=== PATIENT | female | born 1990 | race Hispanic/Latino ===

== ENCOUNTER 2017-02-06 22:37 | Emergency (ER) | payer MEDICAID ==
[2017-02-06 22:38] VITALS: BMI 19.8
--- NOTE | 2017-02-06 23:34 | C.PDOC ---
History Of Present Illness 26 year old female presents to the ER with a complaint of right upper quadrant pain for the past 3 days, associated with multiple episodes of nausea and vomiting. Patient states the pain is similar to prior episodes of "gallbladder problems". Patient was diagnosed with a dysfunctional gall bladder via HIDA scan on 01/23/17. Patient's GI doctor is Dr. Galarza. Patient is also scheduled for surgery on February 15. She denies fever, dysuria/hematuria, diarrhea, vaginal bleeding/discharge. Time Seen by Provider: 02/06/17 23:11 Chief Complaint (Nursing): Abdominal Pain History Per: Patient History/Exam Limitations: no limitations Onset/Duration Of Symptoms: Days (3) Current Symptoms Are (Timing): Still Present Severity: Moderate Location Of Pain/Discomfort: RUQ Associated Symptoms: Nausea (Multiple episodes), Vomiting (Multiple episodes). denies: Fever, Chills Abnormal Vaginal Bleeding: No Past Medical History Reviewed: Historical Data, Nursing Documentation, Vital Signs Vital Signs: Last Vital Signs Temp 98.4 F 02/07/17 02:29 Pulse 74 02/07/17 02:29 Resp 18 02/07/17 02:29 BP 99/60 L 02/07/17 02:29 Pulse Ox 100 02/07/17 02:29 - Medical History PMH: Anxiety, Arthritis ("SPINAL"), Asthma, Gastritis, Seizures - [facility] Procedures INJECT/INFUSE ELECTROLYT (02/24/12) INJECT/INFUSE NEC (04/07/12) NEBULIZER THERAPY (02/20/13) Family History: States: No Known Family Hx - Social History Hx Tobacco Use: No Hx Alcohol Use: No Hx Substance Use: No - Immunization History Hx Tetanus Toxoid Vaccination: Yes Hx Influenza Vaccination: Yes Hx Pneumococcal Vaccination: No Review Of Systems Except As Marked, All Systems Reviewed And Found Negative. Constitutional: Negative for: Fever, Chills Cardiovascular: Negative for: Chest Pain, Palpitations Respiratory: Negative for: Shortness of Breath Gastrointestinal: Positive for: Nausea, Vomiting, Abdominal Pain (RUQ). Negative for: Diarrhea Genitourinary: Negative for: Dysuria, Hematuria, Vaginal Discharge, Vaginal Bleeding Physical Exam - Physical Exam Appears: Well, Non-toxic, Other (Uncomfortable, awake alert, actively vomiting) Skin: Normal Color, Warm, Dry Head: Normacephalic Oral Mucosa: Moist Cardiovascular: Rhythm Regular Respiratory: Normal Breath Sounds, No Rales, No Rhonchi, No Wheezing Gastrointestinal/Abdominal: Bowel Sounds, Soft, Tenderness (RUQ), No Distention , No Guarding, No Rebound Back: Normal Inspection, No CVA Tenderness Neurological/Psych: Oriented x3 ED Course And Treatment - Laboratory Results Result Diagrams: 02/06/17 23:55 02/06/17 23:55 O2 Sat by Pulse Oximetry: 99 (Room air) Pulse Ox Interpretation: Normal Progress Note: Blood work, UA, Upreg ordered and reviewed. Patient given IV NS bolus, IV Zofran, IV pepcid, IV morphine. Reevaluation Time: 02:15 Reassessment Condition: Improved (Patient reassessed, is currently resting comfortably, in no acute distress/pain. She states she is feeling better after medications. Patient given Rxs for zofran, Ciprofloxacin and zofran ODT. Patient instructed to follow up surgeon Dr. Heaton as scheduled. She understands she should return to ED if symptoms worsen.) Disposition Counseled Patient/Family Regarding: Studies Performed, Diagnosis, Need For Followup, Rx Given - Disposition Referrals: Yunior Galarza MD [Staff Provider] - Marito Heaton MD [Staff Provider] - Disposition: HOME/ ROUTINE Disposition Time: 02:15 Condition: STABLE Additional Instructions: FOLLOW UP WITH SURGEON DR MEZA SCHEDULED USE MEDICATIONS NEEDED/DIRECTED RETURN TO ER IF SYMPTOMS WORSEN Prescriptions: Ciprofloxacin [Cipro] 1 tab PO BID #14 tab Hydrocodone/Acetaminophen [Hydrocodon-Acetaminophen 5-325] 1 each PO Q6 PRN #12 tablet PRN Reason: Pain, Moderate (4-7) Ondansetron [Zofran Odt] 4 mg PO Q8 PRN #12 odt PRN Reason: Nausea/Vomiting Instructions: Acute Nausea and Vomiting (ED), Urinary Tract Infection in Women (ED) Print Language: BRUNEIAN - POA Present On Arrival: None - Clinical Impression Clinical Impression: Abdominal pain, Vomiting, Nausea, Dysfunctional gallbladder - Scribe Statement The provider has reviewed the documentation as recorded by the Joseibyessi Gomez All medical record entries made by the Joseibyessi were at my direction and personally dictated by me. I have reviewed the chart and agree that the record accurately reflects my personal performance of the history, physical exam, medical decision making, and the department course for this patient. I have also personally directed, reviewed, and agree with the discharge instructions and disposition.
[2017-02-06] MEDS ORDERED: Sodium Chloride 0.9% 1,000 ML IV ONE (23:42)
[2017-02-06] MEDS ORDERED: Morphine 4 MG/ML VIAL ONE (23:57)
[2017-02-06] MEDS ORDERED: Sodium Chloride 0.9% 1,000 ML ONE (23:58)
[2017-02-07] LABS: BASO # 0.1 K/uL (0.0-0.2); BASO % 0.7 % (0.0-2.0); EOS # 0.1 K/uL (0.0-0.7); EOS % 1.5 % (0.0-4.0); LYMPH # 1.7 K/uL (1.0-4.3); LYMPH % 17.5 % (20.0-40.0); MEAN CORPUSCULAR HEMOGLOBIN 29.7 pg (27.0-31.0); MEAN CORPUSCULAR HGB CONC 33.4 g/dL (33.0-37.0); MEAN PLATELET VOLUME 7.5 fL (7.2-11.7); MONO # 0.7 K/uL (0.0-0.8); NRBC % 0.1 % (0.0-2.0); RED CELL DISTRIBUTION WIDTH 12.8 % (11.5-14.5); WHITE BLOOD COUNT 9.7 K/uL (4.8-10.8)
[2017-02-07 00:04] LABS: RBC URINE 2 /hpf (0-3); URINE BACTERIA MANY (<OCC); URINE BILIRUBIN NEGATIVE (NEGATIVE); URINE BLOOD 2+ (NEGATIVE); URINE COLOR Yellow (YELLOW); URINE GLUCOSE (UA) NORMAL (Normal); URINE KETONE NEGATIVE (NEGATIVE); URINE LEUKOCYTE ESTERASE 1+ Leu/uL (Negative); URINE PROTEIN NEGATIVE (NEGATIVE); URINE UROBILINOGEN NORMAL mg/dL (0.2-1.0); WBC URINE 24 /hpf (0-5)
[2017-02-07 00:08] LABS: CHLORIDE 101 mmol/L (98-107); SODIUM 137 mmol/L (132-148)
[2017-02-07 00:09] LABS: POTASSIUM 3.5 mmol/L (3.6-5.2)
[2017-02-07 00:11] LABS: ALB/GLOB RATIO 1.5 (1.0-2.1); ALKALINE PHOSPHATASE 40 U/L (38-126); ALT/SGPT 14 U/L (9-52); AST/SGOT 20 U/L (14-36); BILIRUBIN,TOTAL 0.5 mg/dL (0.2-1.3); BLOOD UREA NITROGEN 14 mg/dL (7-17); CARBON DIOXIDE 23 mmol/L (22-30); GFR AFRICAN-AMERICAN > 60; GLUCOSE,RANDOM 121 mg/dL (65-105)
[2017-02-07 00:12] LABS: CALCIUM 8.7 mg/dl (8.6-10.4)
[2017-02-07] MEDS ORDERED: Sodium Chloride 0.9% 1,000 ML IV ONE (00:59)
[2017-02-07] MEDS ORDERED: Morphine 4 MG/ML VIAL ONE (01:13)
[2017-02-07] MEDS ORDERED: Sodium Chloride 0.9% 1,000 ML ONE (01:13)
[2017-02-07 02:31] VITALS: BP 99/60; PULSE 74; RESP 18; TEMP 98.4
[2017-02-15 15:54] VITALS: O2SAT 99
== END 2017-02-07 02:30 | disposition home or self-care (01) ==
LOC: C.ER 22:37
DX: K82.8 Other specified diseases of gallbladder (principal); N39.0 Urinary tract infection, site not specified; B96.89 Other specified bacterial agents as the cause of diseases classified elsewhere
CPT/HCPCS: 80053; 81001; 83690; 84703; 85025; 87086; 96361; 96374; 96375; 96376; 99284; J2270; J2405; J7040

== ENCOUNTER 2017-02-19 07:42 | Day surgery (SDC) | payer MEDICAID ==
[2017-02-16 09:48] VITALS: BMI 19.3
[2017-02-19] MEDS ORDERED: Midazolam 2 MG/2 ML VIAL ONE (10:19)
[2017-02-19] MEDS ORDERED: Propofol 10 mg/ml Inj (20 ML) ONE (10:19)
[2017-02-19] MEDS ORDERED: Lidocaine 1% Inj (20ml) ONE (10:20)
[2017-02-19] MEDS ORDERED: Bupivacaine/Epi 0.25%-1:200,000 10 ml PF inj IJ ONE (10:20)
[2017-02-19] MEDS ORDERED: Lactated Ringer's 1,000 ML IV ONE ×2 (10:35→13:00)
[2017-02-19] MEDS: Ciprofloxacin 400mg/200ml D5W 200 ML IVPB ONE ×2 (10:45→10:50)
[2017-02-19] MEDS ORDERED: Rocuronium 10 mg/ml (5 ml) ONE (11:49)
--- NOTE | 2017-02-19 12:02 | PCM.SURG1 ---
Surgeon's Initial Post Op Note - Surgeon's Notes Surgeon: Mimi Heaton MD Intelligence Chief: MADHU Pepper Type of Anesthesia: General Endo Pre-Operative Diagnosis: Chronic Cholecystitis and Cholelithiasis Operative Findings: Chronic Cholecystitis and Cholelithiasis Post-Operative Diagnosis: Chronic Cholecystitis and Cholelithiasis Operation Performed: Robotic Cholecystectomy Specimen/Specimens Removed: Gall Bladder Estimated Blood Loss: EBL {In ML}: 10 Blood Products Given: N/A Drains Used: No Drains Post-Op Condition: Good Date of Surgery/Procedure: 02/19/17 Time of Surgery/Procedure: 12:02
[2017-02-19] MEDS ORDERED: HYDROmorphone 0.5 mg/0.5 ml ISec ONE (12:08)
[2017-02-19] MEDS: HYDROmorphone 0.5 mg/0.5 ml ISec IVP PRN ×3 (12:08→13:06)
[2017-02-19] MEDS ORDERED: Lactated Ringer's 1,000 ML IV SCH (12:15)
--- NOTE | 2017-02-19 13:25 | OP ---
PROCEDURE DATE: 02/19/2017 PREOPERATIVE DIAGNOSES: Chronic cholecystitis and cholelithiasis. POSTOPERATIVE DIAGNOSES: Chronic cholecystitis and cholelithiasis. PROCEDURE DONE: Robotic cholecystectomy. SURGEON: Marito Heaton MD SERVICES TECH: Ealine Fernandez. Elaine was present from the beginning to the end of the procedure, helped i n the prepping and draping, placement of the port, docking/undocking of the robot and closure of the wounds. ANESTHESIA: General endotracheal tube. ESTIMATED BLOOD LOSS: Around 10 mL. PATHOLOGY: The gallbladder was sent. COMPLICATIONS: None. DRAINS: None. INTRAOPERATIVE FINDINGS: The patient had changes of chronic cholecystitis and cholelithiasis. INTRAOPERATIVE STEPS: This 26-year-old female who was diagnosed with chronic cholecystitis and isac lithiasis and the patient was consented for robotic cholecystectomy, possible open, brought to the OR , placed supine on the operating table. After induction of the anesthesia, abdomen was prepped and d raped in the usual sterile fashion. Infraumbilical transverse incision was made. After incising ski n and subcutaneous tissue and fascia, the robotic camera port was placed. Another two 8 mm ports wer e placed in right flank and left flank and the 5 mm port was placed in the midclavicular line on the right side and the robot was brought in and arm 1 and arm 2 were docked and the gallbladder was retra cted cranially. Calot's triangle dissection was done. Cystic duct and cystic artery was identified. The critical view of safety was identified. Intraoperative Firefly was used to identify the anatom y and after proper identification of the structures, the cystic duct and cystic artery were clipped a t 3 places and cut in between 2 clips nearby gallbladder. The gallbladder was dissected free from e gallbladder fossa, taken in EndoCatch bag, taken out through the umbilical port site and sent to e table for the pathology. The umbilical port site was closed in 2 layers, the fascia with 0 Vicryl interrupted suture, skin with 4-0 Monocryl. Dry sterile dressing was applied. The patient tolerated the procedure well. Count of instruments and gauze was correct. There was no apparent complication . The patient was extubated in the OR, sent to the postanesthesia care unit in stable condition. Marito Heaton MD cc: [id number] TT: 02/19/2017 13:24:24 en
[2017-02-19 14:00] VITALS: RESP 18
[2017-02-19 14:51] VITALS: BP 120/77; PULSE 95; TEMP 97.5; O2SAT 99
== END 2017-02-19 14:38 | disposition home or self-care (01) ==
LOC: C.SDS 07:42
PROVIDERS: ATTEND Surgery Surgical Critical Care
DX: K80.10 Calculus of gallbladder with chronic cholecystitis without obstruction (principal)
CPT/HCPCS: 47562; 88304; J0744; J1170; J1885; J2250; J2405; J2704; J3010; J7030; J7120

== ENCOUNTER 2017-03-01 09:12 | Emergency (ER) | payer MEDICAID ==
[2017-03-01 09:23] VITALS: BMI 20.2
--- NOTE | 2017-03-01 09:40 | C.PDOC ---
History Of Present Illness 26 y/o female, LMP on 02/15/17, presents to ED with complaint of vaginal bleeding onset today. Patient reports today she started having vaginal bleeding , causing concern, and came to ER. She reports she has not been sexually active since before last menstrual period. History significant for cholecystectomy on , also with normal pap smear at binding cementer french cord visit in December,. She reports period on 02/15 was for only 2 days and was light, noting she only has menses for 5 days typically and every 28 days. Otherwise, denies abdominal pain other than mild incisional pain she reports that she has had since surgery. Denies dysuria or other vaginal discharge. Patient reports she is not . Time Seen by Provider: 03/01/17 09:15 Chief Complaint (Nursing): Abdominal Pain History Per: Patient History/Exam Limitations: no limitations Onset/Duration Of Symptoms: Hrs Current Symptoms Are (Timing): Still Present Associated Symptoms: denies: Fever, Nausea, Vomiting, Diarrhea, Urinary Symptoms Recent travel outside of the [place]: No Abnormal Vaginal Bleeding: Yes Last Menstral Period: 02/15/17 Past Medical History Reviewed: Historical Data, Nursing Documentation, Vital Signs Vital Signs: Last Vital Signs Temp 98.5 F 03/01/17 11:21 Pulse 93 H 03/01/17 11:21 Resp 16 03/01/17 11:21 BP 97/62 L 03/01/17 11:21 Pulse Ox 98 03/01/17 11:21 - Medical History PMH: Anxiety, Arthritis (coccyx), Asthma, Cardia Arrhythmia (5 years ago due to infection per pt asymptomatic at present), Fractures (coccyx), Gastritis, Gall Bladder Disease, Seizures (grand mal last seizure 6 months ago) Surgical History: Endoscopy - [facility] Procedures INJECT/INFUSE ELECTROLYT (02/24/12) INJECT/INFUSE NEC (04/07/12) NEBULIZER THERAPY (02/20/13) Family History: States: Unknown Family Hx - Social History Hx Tobacco Use: No Hx Alcohol Use: No Hx Substance Use: No - Immunization History Hx Tetanus Toxoid Vaccination: Yes Hx Influenza Vaccination: Yes Hx Pneumococcal Vaccination: Yes Review Of Systems Constitutional: Negative for: Fever, Chills ENT: Negative for: Ear Pain Cardiovascular: Negative for: Chest Pain, Palpitations, Orthopnea, Edema, Light Headedness Respiratory: Negative for: Cough, Shortness of Breath, SOB with Excertion, Wheezing Gastrointestinal: Negative for: Nausea, Vomiting, Abdominal Pain, Diarrhea, Constipation Genitourinary: Positive for: Vaginal Bleeding. Negative for: Dysuria, Vaginal Discharge, Pelvic Pain, Rash Skin: Negative for: Rash Neurological: Negative for: Weakness, Numbness, Altered Mental Status, Headache , Dizziness Psych: Negative for: Anxiety Physical Exam - Physical Exam Appears: Well, Non-toxic, No Acute Distress Skin: Warm, Dry Head: Atraumatic, Normacephalic Eye(s): bilateral: Normal Inspection Oral Mucosa: Moist Neck: Supple Chest: Symmetrical Cardiovascular: Rhythm Regular Respiratory: Normal Breath Sounds, No Rales, No Rhonchi, No Wheezing Gastrointestinal/Abdominal: Soft, No Tenderness, No Organomegaly, No Mass, No Distention, No Guarding, No Rebound, Other (laproscopic incision x 3, clean, dry , and intact with steri strips in place) Back: Normal Inspection, No CVA Tenderness Extremity: Normal ROM, Capillary Refill (< 2 sec. ) Neurological/Psych: Oriented x3, Normal Speech, Normal Cognition ED Course And Treatment - Laboratory Results Result Diagrams: 03/01/17 09:42 03/01/17 09:42 O2 Sat by Pulse Oximetry: 100 (RA) Pulse Ox Interpretation: Normal Medical Decision Making Medical Decision Making: Patient is hemodynamically stable and well appearing. Mild incisional tenderness on exam which appears normal post-op. Recent normal pap smear. She has no hx of fibroids and no hx of bleeding disorders. Impression: vs. irregular menses Plan: * bloodwork, UA, POC upreg * reassess Progress: Patient is not . She has normal vitals. Her labs show hgb:13 and normal platelets and coagulation studies. Her ua shows blood and trace leukocytes but no nitrates and she has no dysuria. As she is asymptomatic and not , will not treat based on current guidelines. Patient instructed on the importance of following up with hide paster for irregular menses for further evaluation. Disposition - Disposition Disposition: HOME/ ROUTINE Disposition Time: 11:04 Condition: GOOD Additional Instructions: Follow up with PMD within 2 days. Follow-up with your surgeon as regularly scheduled. You need to follow-up with your hide paster for irregular menses within 1 week. Return to ED if condition worsens. Instructions: Menstruation (ED), Dysfunctional Uterine Bleeding (ED) - Clinical Impression Clinical Impression: Metrorrhagia - Scribe Statement The provider has reviewed the documentation as recorded by the Bruce Guthrie Provider Bruce Attestation: All medical record entries made by the Joseibe were at my direction and personally dictated by me. I have reviewed the chart and agree that the record accurately reflects my personal performance of the history, physical exam, medical decision making, and the department course for this patient. I have also personally directed, reviewed, and agree with the discharge instructions and disposition.
[2017-03-01 09:45] LABS: BASO # 0.1 K/uL (0.0-0.2); BASO % 0.5 % (0.0-2.0); EOS # 0.3 K/uL (0.0-0.7); EOS % 2.3 % (0.0-4.0); HEMATOCRIT 40.2 % (34.0-47.0); LYMPH # 0.9 K/uL (1.0-4.3); LYMPH % 7.7 % (20.0-40.0); MEAN CELL VOLUME 89.2 fL (81.0-99.0); MEAN CORPUSCULAR HEMOGLOBIN 29.4 pg (27.0-31.0); MONO # 0.6 K/uL (0.0-0.8); MONO % 5.2 % (0.0-10.0); PLATELET COUNT 295 K/uL (130-400); RED CELL DISTRIBUTION WIDTH 12.5 % (11.5-14.5); WHITE BLOOD COUNT 11.9 K/uL (4.8-10.8)
[2017-03-01 09:53] LABS: CHLORIDE 104 mmol/L (98-107); INR 1.1; SODIUM 141 mmol/L (132-148)
[2017-03-01 09:56] LABS: BLOOD UREA NITROGEN 14 mg/dL (7-17); CALCIUM 8.6 mg/dl (8.6-10.4); CARBON DIOXIDE 25 mmol/L (22-30); GFR AFRICAN-AMERICAN > 60; GLUCOSE,RANDOM 100 mg/dL (65-105)
[2017-03-01 10:20] LABS: EOSINOPHIL 2 % (0-4); NEUTROPHIL 87 % (50-75); TOTAL CELLS COUNTED 100
[2017-03-01 10:59] LABS: RBC URINE 29 /hpf (0-3); URINE BILIRUBIN NEGATIVE (NEGATIVE); URINE BLOOD 3+ (NEGATIVE); URINE COLOR Yellow (YELLOW); URINE GLUCOSE (UA) NORMAL (Normal); URINE KETONE NEGATIVE (NEGATIVE); URINE LEUKOCYTE ESTERASE TRACE Leu/uL (Negative); URINE PROTEIN 1+ mg/dL (NEGATIVE); URINE UROBILINOGEN NORMAL mg/dL (0.2-1.0); WBC URINE 5 /hpf (0-5)
[2017-03-01 11:21] VITALS: BP 97/62; PULSE 93; RESP 16; TEMP 98.5
[2017-03-01 12:58] VITALS: O2SAT 100
== END 2017-03-01 11:27 | disposition home or self-care (01) ==
LOC: C.ER 09:12
DX: N92.1 Excessive and frequent menstruation with irregular cycle (principal)
CPT/HCPCS: 80048; 81001; 85025; 85610; 85730; 96374; 99285; J1885

== ENCOUNTER 2017-04-11 09:28 | Emergency (ER) | payer MEDICAID ==
[2017-04-11 09:29] VITALS: BMI 20.2
[2017-04-11] MEDS ORDERED: Sodium Chloride 0.9% 1,000 ML IV ONE (10:03)
--- NOTE | 2017-04-11 10:06 | C.PDOC ---
History Of Present Illness 26 y/o female, history of gastritis, IBS, and cholecystectomy presents to ED with c/o abdominal pain associated with persistent vomiting since 10PM last night. Pt also reports mild diarrhea. She notes she has been unable to take her regular medications. Denies fever, chills, chest pain, shortness of breath, urinary symptoms, or other complaints. Time Seen by Provider: 04/11/17 10:02 Chief Complaint (Nursing): GI Problem History Per: Patient History/Exam Limitations: no limitations Onset/Duration Of Symptoms: Hrs, Persistent Current Symptoms Are (Timing): Still Present Location Of Pain/Discomfort: Epigastric Radiation Of Pain To:: None Quality Of Discomfort: "Pain" Associated Symptoms: Nausea, Vomiting, Diarrhea. denies: Urinary Symptoms Recent travel outside of the [place]: No Past Medical History Reviewed: Historical Data, Nursing Documentation, Vital Signs Vital Signs: Last Vital Signs Temp 98.8 F 04/11/17 12:40 Pulse 93 H 04/11/17 12:40 Resp 18 04/11/17 12:40 BP 96/63 L 04/11/17 12:40 Pulse Ox 98 04/11/17 12:40 - Medical History PMH: Anxiety, Arthritis (coccyx), Asthma, Cardia Arrhythmia (5 years ago due to infection per pt asymptomatic at present), Fractures (coccyx), Gastritis, Gall Bladder Disease, Seizures (grand mal last seizure 6 months ago) Surgical History: Cholecystectomy, Endoscopy - [facility] Procedures INJECT/INFUSE ELECTROLYT (02/24/12) INJECT/INFUSE NEC (04/07/12) NEBULIZER THERAPY (02/20/13) Family History: States: Unknown Family Hx - Social History Hx Tobacco Use: No Hx Alcohol Use: No Hx Substance Use: No - Immunization History Hx Tetanus Toxoid Vaccination: No Hx Influenza Vaccination: No Hx Pneumococcal Vaccination: No Review Of Systems Except As Marked, All Systems Reviewed And Found Negative. Constitutional: Negative for: Fever, Chills Cardiovascular: Negative for: Chest Pain Respiratory: Negative for: Cough, Shortness of Breath, Wheezing Gastrointestinal: Positive for: Nausea, Vomiting, Abdominal Pain, Diarrhea Genitourinary: Negative for: Dysuria Skin: Negative for: Rash Physical Exam - Physical Exam Appears: Non-toxic, Other (uncomfortable) Skin: Normal Color, Warm, Dry Head: Atraumatic, Normacephalic Oral Mucosa: Moist Chest: Symmetrical Cardiovascular: Rhythm Regular Respiratory: Normal Breath Sounds, No Rales, No Rhonchi, No Wheezing Gastrointestinal/Abdominal: Soft, Tenderness (epigastric), No Distention, No Guarding, No Rebound Back: Normal Inspection Extremity: Normal ROM, Capillary Refill (< 2 sec. ) Neurological/Psych: Oriented x3, Normal Speech, Normal Cognition ED Course And Treatment - Laboratory Results Result Diagrams: 04/11/17 10:48 04/11/17 10:48 O2 Sat by Pulse Oximetry: 100 (RA) Pulse Ox Interpretation: Normal Medical Decision Making Medical Decision Making: Pepcid, Zofran, IV fluids, labs ordered. Labs reviewed and unremarkable, no leukocytosis or bands On re-eval patient afebrile and reports feeling better. Patient was able to tolerate PO. Patient is stable and comfortable for discharge Disposition Counseled Patient/Family Regarding: Diagnosis, Need For Followup, Rx Given - Disposition Disposition: HOME/ ROUTINE Disposition Time: 11:55 Condition: IMPROVED Additional Instructions: Drink fluids to prevent dehydration. Take Zofran as prescribed. Try low-fat diet with increase in fluids such as sport drink, gelatin. Try soup, rice, bread , crackers, cereal, and bananas to help with diarrhea. Avoid high sugar foods or drinks (soda and juice), fatty foods Prescriptions: Dicyclomine [Bentyl] 20 mg PO QID #20 tab Ondansetron ODT [Zofran ODT] 1 odt PO BID PRN #6 odt PRN Reason: Nausea/Vomiting Instructions: Gastroenteritis (DC) - POA Present On Arrival: None - Clinical Impression Clinical Impression: Gastroenteritis - PA / JEWELRY ENGRAVER / Resident Statement MD/DO has reviewed & agrees with the documentation as recorded. - Scribe Statement The provider has reviewed the documentation as recorded by the Joseibyessi Guthrie All medical record entries made by the Joseibyessi were at my direction and personally dictated by me. I have reviewed the chart and agree that the record accurately reflects my personal performance of the history, physical exam, medical decision making, and the department course for this patient. I have also personally directed, reviewed, and agree with the discharge instructions and disposition.
[2017-04-11] MEDS ORDERED: Sodium Chloride 0.9% 1,000 ML ONE (10:44)
[2017-04-11 11:16] LABS: BASO # 0.1 K/uL (0.0-0.2); BASO % 0.9 % (0.0-2.0); EOS % 0.6 % (0.0-4.0); LYMPH # 1.2 K/uL (1.0-4.3); LYMPH % 14.4 % (20.0-40.0); MEAN CELL VOLUME 89.7 fL (81.0-99.0); MEAN CORPUSCULAR HGB CONC 33.5 g/dL (33.0-37.0); MEAN PLATELET VOLUME 8.4 fL (7.2-11.7); MONO # 0.5 K/uL (0.0-0.8); MONO % 5.4 % (0.0-10.0); NRBC % 0.1 % (0.0-2.0); RED CELL DISTRIBUTION WIDTH 12.8 % (11.5-14.5); WHITE BLOOD COUNT 8.4 K/uL (4.8-10.8)
[2017-04-11 11:26] LABS: CHLORIDE 105 mmol/L (98-107)
[2017-04-11 11:27] LABS: POTASSIUM 4.4 mmol/L (3.6-5.2); SODIUM 140 mmol/L (132-148)
[2017-04-11 11:29] LABS: ALB/GLOB RATIO 1.7 (1.0-2.1); ALKALINE PHOSPHATASE 43 U/L (38-126); ALT/SGPT 21 U/L (9-52); AST/SGOT 20 U/L (14-36); BILIRUBIN,TOTAL 0.4 mg/dL (0.2-1.3); BLOOD UREA NITROGEN 14 mg/dL (7-17); CARBON DIOXIDE 21 mmol/L (22-30); GFR AFRICAN-AMERICAN > 60; GLUCOSE,RANDOM 104 mg/dL (65-105); TOTAL PROTEIN 7.4 g/dL (6.3-8.3)
[2017-04-11 11:30] LABS: CALCIUM 8.6 mg/dl (8.6-10.4)
[2017-04-11 11:39] LABS: RBC URINE 3 /hpf (0-3); URINE BACTERIA FEW (<OCC); URINE BILIRUBIN NEGATIVE (NEGATIVE); URINE BLOOD NEGATIVE (NEGATIVE); URINE COLOR Yellow (YELLOW); URINE GLUCOSE (UA) NORMAL (Normal); URINE KETONE NEGATIVE (NEGATIVE); URINE LEUKOCYTE ESTERASE TRACE Leu/uL (Negative); URINE PROTEIN NEGATIVE (NEGATIVE); URINE UROBILINOGEN NORMAL mg/dL (0.2-1.0); WBC URINE 8 /hpf (0-5)
[2017-04-11 12:40] VITALS: BP 96/63; PULSE 93; RESP 18; TEMP 98.8
[2017-04-11 15:47] VITALS: O2SAT 100
== END 2017-04-11 13:15 | disposition home or self-care (01) ==
LOC: C.ER 09:28
DX: K52.9 Noninfective gastroenteritis and colitis, unspecified (principal)
CPT/HCPCS: 80053; 81001; 83690; 84703; 85025; 96361; 96374; 96375; 99285; J2405; J7040

== ENCOUNTER 2017-05-16 09:15 | Emergency (ER) | payer MEDICAID ==
[2017-05-16 09:16] VITALS: BMI 20.2
[2017-05-16] MEDS ORDERED: Sodium Chloride 0.9% 1,000 ML IV ONE (09:48)
--- NOTE | 2017-05-16 09:53 | C.PDOC ---
History Of Present Illness 26-year-old () female, PMHx includes Anxiety, Arthritis (coccyx), Asthma, Cardiac Arrhythmia, Gastritis, Gall Bladder Disease, Seizures (Topamax BID), presents to the emergency department with complaints of seizure. Patient states she had a seizure while in bed this morning, and she was incontinent of urine. Patient notes a Hx of migraines, and states she currently has a migraine-like headache. Of note, she was seen in [facility] yesterday for vaginal bleeding. States she was told she was having a miscarriage. Patient states she was about two months . Patient is set up for EEG today. Time Seen by Provider: 05/16/17 09:35 Chief Complaint (Nursing): Headache History Per: Patient History/Exam Limitations: no limitations Onset/Duration Of Symptoms: Hrs Current Symptoms Are (Timing): Still Present Severity: Moderate Past Medical History Reviewed: Historical Data, Nursing Documentation, Vital Signs Vital Signs: Last Vital Signs Temp 99.2 F 05/16/17 09:23 Pulse 94 H 05/16/17 09:23 Resp 18 05/16/17 09:23 BP 96/67 L 05/16/17 09:23 Pulse Ox 100 05/16/17 11:59 - Medical History PMH: Anxiety, Arthritis (coccyx), Asthma, Cardia Arrhythmia (5 years ago due to infection per pt asymptomatic at present), Fractures (coccyx), Gastritis, Gall Bladder Disease, Seizures (grand mal last seizure 6 months ago) Surgical History: Cholecystectomy, Endoscopy - [facility] Procedures INJECT/INFUSE ELECTROLYT (02/24/12) INJECT/INFUSE NEC (04/07/12) NEBULIZER THERAPY (02/20/13) Family History: States: No Known Family Hx - Social History Hx Tobacco Use: No Hx Alcohol Use: No Hx Substance Use: No - Immunization History Hx Tetanus Toxoid Vaccination: No Hx Influenza Vaccination: Yes Hx Pneumococcal Vaccination: No Review Of Systems Except As Marked, All Systems Reviewed And Found Negative. Constitutional: Negative for: Fever Cardiovascular: Negative for: Chest Pain Respiratory: Negative for: Shortness of Breath Gastrointestinal: Negative for: Nausea, Vomiting Genitourinary: Positive for: Vaginal Bleeding Musculoskeletal: Negative for: Back Pain Neurological: Positive for: Seizures, Headache. Negative for: Weakness, Numbness Physical Exam - Physical Exam Appears: Non-toxic, No Acute Distress Skin: Warm, Dry, No Rash Head: Atraumatic, Normacephalic Eye(s): bilateral: Normal Inspection, PERRL Nose: Normal Oral Mucosa: Moist Lips: Normal Appearing Neck: Normal ROM Chest: Symmetrical Cardiovascular: Rhythm Regular, No Murmur Respiratory: Normal Breath Sounds, No Accessory Muscle Use Extremity: Normal ROM Neurological/Psych: Oriented x3, Normal Speech ED Course And Treatment - Laboratory Results Result Diagrams: 05/16/17 10:01 05/16/17 10:01 Lab Interpretation: Normal Urine POC: Negative O2 Sat by Pulse Oximetry: 100 (on RA) Pulse Ox Interpretation: Normal Progress Note: Bloodwork, UA and U Preg ordered and reviewed. patient treated with Reglan and IVFs. On re-evaluation alert, neuro intact, ambulating with steady gait Reassessment Condition: Improved Medical Decision Making Medical Decision Making: Patient reports she has appointment for EEG today at 1 PM as outpatient Disposition Counseled Patient/Family Regarding: Studies Performed, Diagnosis, Need For Followup, Rx Given - Disposition Referrals: [facility] [Outside] [facility] [Outside] Disposition: HOME/ ROUTINE Disposition Time: 12:00 Condition: STABLE Additional Instructions: Follow up with your neurologist for further evaluation Prescriptions: Acetaminophen/Butalbital/Caf [Fioricet] 1 tab PO TID PRN #10 tab PRN Reason: Headache Instructions: Migraine Headache (ED) - POA Present On Arrival: None - Clinical Impression Clinical Impression: Seizure disorder, Migraine headache - Scribe Statement The provider has reviewed the documentation as recorded by the Scribe (Prashant Ricketts) All medical record entries made by the Scribe were at my direction and personally dictated by me. I have reviewed the chart and agree that the record accurately reflects my personal performance of the history, physical exam, medical decision making, and the department course for this patient. I have also personally directed, reviewed, and agree with the discharge instructions and disposition.
[2017-05-16] MEDS ORDERED: Sodium Chloride 0.9% 1,000 ML ONE (10:02)
[2017-05-16 10:07] LABS: BASO # 0.1 K/uL (0.0-0.2); BASO % 0.6 % (0.0-2.0); EOS % 0.5 % (0.0-4.0); LYMPH % 11.6 % (20.0-40.0); MEAN CORPUSCULAR HGB CONC 33.3 g/dL (33.0-37.0); MEAN PLATELET VOLUME 7.9 fL (7.2-11.7); MONO # 0.4 K/uL (0.0-0.8); MONO % 4.5 % (0.0-10.0); NEUT # 7.4 K/uL (1.8-7.0); NEUT % 82.8 % (50.0-75.0); RBC 4.32 Mil/uL (3.80-5.20)
[2017-05-16 10:17] LABS: ALB/GLOB RATIO 1.3 (1.0-2.1); ALT/SGPT 25 U/L (9-52); AST/SGOT 19 U/L (14-36); BLOOD UREA NITROGEN 15 mg/dL (7-17); GFR AFRICAN-AMERICAN > 60; GFR NON-AFRICAN AMERICAN > 60
[2017-05-16 10:18] LABS: CALCIUM 8.3 mg/dl (8.6-10.4)
[2017-05-16 11:29] LABS: HCG,QUALITATIVE URINE NEGATIVE (NEGATIVE)
[2017-05-16 11:47] LABS: SQUAMOUS EPITHIAL 8 /hpf (0-5); URINE BACTERIA OCC (<OCC); URINE BILIRUBIN NEGATIVE (NEGATIVE); URINE BLOOD 3+ (NEGATIVE); URINE CLARITY Hazy (Clear); URINE COLOR Yellow (YELLOW); URINE GLUCOSE (UA) NORMAL (Normal); URINE LEUKOCYTE ESTERASE 1+ Leu/uL (Negative); URINE NITRATE NEGATIVE (NEGATIVE); URINE PROTEIN NEGATIVE (NEGATIVE); URINE UROBILINOGEN NORMAL mg/dL (0.2-1.0)
[2017-05-16 12:22] VITALS: BP 105/55; PULSE 84; RESP 16; TEMP 98.1; O2SAT 98
== END 2017-05-16 12:34 | disposition home or self-care (01) ==
LOC: C.ER 09:15
DX: G43.909 Migraine, unspecified, not intractable, without status migrainosus (principal); G40.909 Epilepsy, unspecified, not intractable, without status epilepticus
CPT/HCPCS: 80053; 81001; 84702; 84703; 85025; 96374; 99285; J2765; J7040

== ENCOUNTER 2017-06-28 21:45 | Emergency (ER) | payer MEDICAID ==
[2017-06-28 21:45] VITALS: BMI 20.2
[2017-06-28 21:56] VITALS: O2SAT 99
[2017-06-28] MEDS ORDERED: Sodium Chloride 0.9% 1,000 ML ONE (22:06)
[2017-06-28] MEDS ORDERED: Sodium Chloride 0.9% 1,000 ML IV ONE (22:14)
--- NOTE | 2017-06-28 22:17 | C.PDOC ---
History Of Present Illness 26 y/o female, PMHx of seizures, asthma, and cholecystectomy presents to the ED c/o nausea , vomiting, mild dizziness, and lightheadedness that started today. She has no diarrhea. she denies any sick contacts or recent travel. The patient notes LMP 06/23/17. The patient denies abdominal pain, fever,and chills Time Seen by Provider: 06/28/17 22:09 Chief Complaint (Nursing): GI Problem History Per: Patient History/Exam Limitations: no limitations Onset/Duration Of Symptoms: Hrs Current Symptoms Are (Timing): Still Present Associated Symptoms: Nausea, Vomiting, Other (little dizziness and light headed ). denies: Fever, Chills, Diarrhea Recent travel outside of the [place]: No Past Medical History Reviewed: Historical Data, Nursing Documentation, Vital Signs Vital Signs: Last Vital Signs Temp 97.7 F 06/28/17 21:53 Pulse 84 06/28/17 23:13 Resp 20 06/28/17 23:13 BP 112/64 06/28/17 23:13 Pulse Ox 99 06/28/17 23:13 - Medical History PMH: Anxiety, Arthritis (coccyx), Asthma, Cardia Arrhythmia (5 years ago due to infection per pt asymptomatic at present), Fractures (coccyx), Gastritis, Gall Bladder Disease, Seizures (grand mal last seizure 6 months ago) Surgical History: Cholecystectomy, Endoscopy - [facility] Procedures INJECT/INFUSE ELECTROLYT (02/24/12) INJECT/INFUSE NEC (04/07/12) NEBULIZER THERAPY (02/20/13) Family History: States: No Known Family Hx - Social History Hx Tobacco Use: No Hx Alcohol Use: No Hx Substance Use: No - Immunization History Hx Tetanus Toxoid Vaccination: No Hx Influenza Vaccination: No Hx Pneumococcal Vaccination: No Review Of Systems Except As Marked, All Systems Reviewed And Found Negative. Constitutional: Negative for: Fever, Chills Gastrointestinal: Positive for: Nausea, Vomiting. Negative for: Abdominal Pain , Diarrhea Physical Exam - Physical Exam Appears: Non-toxic, No Acute Distress Skin: Normal Color, Dry Oral Mucosa: Dry Chest: Symmetrical Cardiovascular: Rhythm Regular Respiratory: Normal Breath Sounds, No Rales, No Rhonchi Gastrointestinal/Abdominal: Bowel Sounds (Hypoactive), Soft, No Tenderness, No Guarding, No Rebound Extremity: Normal ROM Neurological/Psych: Oriented x3, Normal Speech Gait: Steady ED Course And Treatment - Laboratory Results Result Diagrams: 06/28/17 22:20 06/28/17 22:20 Lab Interpretation: Normal O2 Sat by Pulse Oximetry: 99 (RA) Pulse Ox Interpretation: Normal Progress Note: The patient received blood work and UA. Zofran and IV fluids administered. Reevaluation Time: 00:04 Reassessment Condition: Improved (but still feeling slightly nauseated. Repeat Zofran given. Pepcid also ordered.) Disposition Counseled Patient/Family Regarding: Studies Performed, Diagnosis, Need For Followup, Rx Given - Disposition Referrals: John Reynolds MD [Staff Provider] - Disposition: HOME/ ROUTINE Disposition Time: 00:07 Condition: IMPROVED Additional Instructions: Encourage fluids and keep your diet bland. Prescriptions: Ondansetron ODT [Zofran ODT] 1 odt PO BID PRN #6 odt PRN Reason: Nausea/Vomiting Instructions: Acute Nausea and Vomiting (ED) Forms: [employer] (Spanish) - Clinical Impression Clinical Impression: Nausea & vomiting - Scribe Statement The provider has reviewed the documentation as recorded by the Scribe (Natalee Bejarano) Provider Attestation: All medical record entries made by the Scribe were at my direction and personally dictated by me. I have reviewed the chart and agree that the record accurately reflects my personal performance of the history, physical exam, medical decision making, and the department course for this patient. I have also personally directed, reviewed, and agree with the discharge instructions and disposition.
[2017-06-28 22:23] LABS: BASO # 0.1 K/uL (0.0-0.2); BASO % 0.9 % (0.0-2.0); EOS # 0.1 K/uL (0.0-0.7); EOS % 0.8 % (0.0-4.0); HEMATOCRIT 40.3 % (34.0-47.0); LYMPH # 2.1 K/uL (1.0-4.3); LYMPH % 24.3 % (20.0-40.0); MEAN CELL VOLUME 89.1 fL (81.0-99.0); MEAN CORPUSCULAR HEMOGLOBIN 30.5 pg (27.0-31.0); MEAN CORPUSCULAR HGB CONC 34.2 g/dL (33.0-37.0); MEAN PLATELET VOLUME 7.8 fL (7.2-11.7); MONO # 0.7 K/uL (0.0-0.8); MONO % 7.6 % (0.0-10.0); RED CELL DISTRIBUTION WIDTH 12.8 % (11.5-14.5); WHITE BLOOD COUNT 8.5 K/uL (4.8-10.8)
[2017-06-28 22:32] LABS: CHLORIDE 108 mmol/L (98-107)
[2017-06-28 22:33] LABS: SODIUM 141 mmol/L (132-148)
[2017-06-28 22:34] LABS: POTASSIUM 3.8 mmol/L (3.6-5.2)
[2017-06-28 22:36] LABS: ALB/GLOB RATIO 1.5 (1.0-2.1); ALKALINE PHOSPHATASE 34 U/L (38-126); ALT/SGPT 22 U/L (9-52); AST/SGOT 22 U/L (14-36); BILIRUBIN,TOTAL 1.1 mg/dL (0.2-1.3); BLOOD UREA NITROGEN 17 mg/dL (7-17); CARBON DIOXIDE 22 mmol/L (22-30); GFR AFRICAN-AMERICAN > 60; GLUCOSE,RANDOM 112 mg/dL (65-105); TOTAL PROTEIN 7.2 g/dL (6.3-8.3)
[2017-06-28 23:13] VITALS: RESP 20
[2017-06-28 23:23] LABS: URINE BACTERIA FEW (<OCC); URINE BILIRUBIN NEGATIVE (NEGATIVE); URINE BLOOD NEGATIVE (NEGATIVE); URINE COLOR Yellow (YELLOW); URINE GLUCOSE (UA) NORMAL (Normal); URINE KETONE TRACE mg/dL (NEGATIVE); URINE LEUKOCYTE ESTERASE NEG Leu/uL (Negative); URINE PROTEIN NEGATIVE (NEGATIVE)
[2017-06-29 00:24] VITALS: BP 110/64; PULSE 80; TEMP 98.5
== END 2017-06-29 00:23 | disposition home or self-care (01) ==
LOC: C.ER 21:45
DX: R11.2 Nausea with vomiting, unspecified (principal)
CPT/HCPCS: 80053; 81001; 83690; 84703; 85025; 96361; 96374; 96375; 96376; 99285; J2405; J7040

== ENCOUNTER 2017-07-09 21:54 | Emergency (ER) | payer MEDICAID ==
[2017-07-09 21:55] VITALS: BMI 20.2
--- NOTE | 2017-07-09 23:32 | C.PDOC ---
History Of Present Illness 26 year old female who presents to the ER with a complaint of cough, congestion , and body aches that began today. Patient reports she has family members at home with similar symptoms and states she took OTC medication with minimal relief to symptoms. Denies fever, chills, nausea, vomiting, abd pain, [place], or UTI sx. Time Seen by Provider: 07/09/17 22:11 Chief Complaint (Nursing): Cough, Cold, Congestion History Per: Patient History/Exam Limitations: no limitations Onset/Duration Of Symptoms: Hrs Current Symptoms Are (Timing): Still Present Location Of Pain: Diffuse Myalgias Sick Contacts (Context): Family Member(s) Associated Symptoms: Cough, Nasal Congestion. denies: Fever, Chills, Vomiting, Diarrhea Ear Symptoms: Bilateral: None Recent travel outside of the [place]: No Past Medical History Reviewed: Historical Data, Nursing Documentation, Vital Signs Vital Signs: Last Vital Signs Temp 97.7 F 07/09/17 23:49 Pulse 88 07/09/17 23:49 Resp 16 07/09/17 23:49 BP 102/62 07/09/17 23:49 Pulse Ox 97 07/10/17 02:31 - Medical History PMH: Anxiety, Arthritis (coccyx), Asthma, Cardia Arrhythmia (5 years ago due to infection per pt asymptomatic at present), Fractures (coccyx), Gastritis, Gall Bladder Disease, Seizures (grand mal last seizure 6 months ago) Surgical History: Cholecystectomy, Endoscopy - [facility] Procedures INJECT/INFUSE ELECTROLYT (02/24/12) INJECT/INFUSE NEC (04/07/12) NEBULIZER THERAPY (02/20/13) Family History: States: No Known Family Hx - Social History Hx Tobacco Use: No Hx Alcohol Use: No Hx Substance Use: No - Immunization History Hx Tetanus Toxoid Vaccination: No Hx Influenza Vaccination: No Hx Pneumococcal Vaccination: No Review Of Systems Constitutional: Positive for: Malaise. Negative for: Fever, Chills ENT: Positive for: Nose Congestion Respiratory: Positive for: Cough Gastrointestinal: Negative for: Nausea, Vomiting Neurological: Negative for: Weakness, Numbness Physical Exam - Physical Exam Appears: Non-toxic, No Acute Distress Skin: Normal Color, Warm, Dry Head: Atraumatic, Normacephalic Ear(s): Bilateral: Normal Oral Mucosa: Moist Neck: Normal, Supple Chest: Symmetrical, No Tenderness Cardiovascular: Rhythm Regular, No Murmur Respiratory: Normal Breath Sounds, No Rales, No Rhonchi, No Wheezing Gastrointestinal/Abdominal: Soft, No Tenderness Neurological/Psych: Oriented x3, Normal Speech, Normal Cognition ED Course And Treatment O2 Sat by Pulse Oximetry: 97 (Room air) Pulse Ox Interpretation: Normal Progress Note: Patient is resting comfortably in the ER and is in no acute distress. Will discharge home with Rx and advise to follow up with PMD. Disposition - Disposition Referrals: John Reynolds MD [Primary Care Provider] - Disposition: HOME/ ROUTINE Disposition Time: 23:28 Condition: STABLE Additional Instructions: Please follow up with PMD Take meds as directed Increase PO fluids Return to ER if worse Prescriptions: Benzonatate [Tessalon Perles] 100 mg PO TID #20 sgl Cetirizine HCl [Zyrtec] 10 mg PO DAILY #20 capsule Ibuprofen [Motrin] 1 tab PO TID PRN #30 tab PRN Reason: Pain Instructions: Upper Respiratory Infection (ED) Forms: [employer] (Zambian) - Clinical Impression Clinical Impression: Upper respiratory infection, Influenza-like illness - Scribe Statement The provider has reviewed the documentation as recorded by the Scribe Raghavendra Gomez All medical record entries made by the Scribe were at my direction and personally dictated by me. I have reviewed the chart and agree that the record accurately reflects my personal performance of the history, physical exam, medical decision making, and the department course for this patient. I have also personally directed, reviewed, and agree with the discharge instructions and disposition.
[2017-07-09 23:50] VITALS: BP 102/62; PULSE 88; RESP 16; TEMP 97.7
[2017-07-10 02:27] VITALS: O2SAT 97
== END 2017-07-09 23:49 | disposition home or self-care (01) ==
LOC: C.ER 21:54 → SUPCPDRO 21:54 → C.ER 23:49
DX: J11.1 Influenza due to unidentified influenza virus with other respiratory manifestations (principal)

== ENCOUNTER 2017-07-24 21:01 | Emergency (ER) | payer MEDICAID ==
[2017-07-24 21:02] VITALS: BMI 20.2
[2017-07-24 22:26] LABS: BASO % 0.4 % (0.0-2.0); EOS % 0.3 % (0.0-4.0); HEMATOCRIT 39.7 % (34.0-47.0); LYMPH # 1.6 K/uL (1.0-4.3); LYMPH % 14.8 % (20.0-40.0); MEAN CORPUSCULAR HEMOGLOBIN 30.9 pg (27.0-31.0); MEAN CORPUSCULAR HGB CONC 34.4 g/dL (33.0-37.0); MEAN PLATELET VOLUME 7.8 fL (7.2-11.7); MONO # 0.7 K/uL (0.0-0.8); MONO % 6.3 % (0.0-10.0); RED CELL DISTRIBUTION WIDTH 12.9 % (11.5-14.5); WHITE BLOOD COUNT 11.2 K/uL (4.8-10.8)
[2017-07-24 22:36] LABS: CHLORIDE 103 mmol/L (98-107)
[2017-07-24 22:37] LABS: SODIUM 140 mmol/L (132-148)
[2017-07-24 22:38] LABS: POTASSIUM 4.2 mmol/L (3.6-5.2)
[2017-07-24 22:39] LABS: ALB/GLOB RATIO 1.5 (1.0-2.1); AST/SGOT 34 U/L (14-36); BILIRUBIN,TOTAL 1.1 mg/dL (0.2-1.3); CARBON DIOXIDE 19 mmol/L (22-30); GFR AFRICAN-AMERICAN > 60; TOTAL PROTEIN 7.8 g/dL (6.3-8.3)
[2017-07-24 22:40] LABS: ALKALINE PHOSPHATASE 31 U/L (38-126); ALT/SGPT 23 U/L (9-52); BLOOD UREA NITROGEN 20 mg/dL (7-17); GLUCOSE,RANDOM 119 mg/dL (65-105)
--- NOTE | 2017-07-24 22:58 | C.PDOC ---
History Of Present Illness Patient presents to the ED for evaluation following two seizures prior to arrival. Patient complaints of nausea, vomiting, and mild abdominal discomfort. Patient is speaking in complete sentences. Last seizure was 7 months ago and denies fever and chills. Time Seen by Provider: 07/24/17 22:58 Chief Complaint (Nursing): Seizure History Per: Patient History/Exam Limitations: no limitations Recent Seizure Activity Began: Just Before Arrival Number Of Seizures: Multiple (two) Length Of Seizures (Duration): Unknown Quality Of Seizure: Generalized Post-ictal Period: No Severity: Mild Pain Scale Rating Of: 4 Recent travel outside of the [place]: No Additional History Per: Family Past Medical History Reviewed: Historical Data, Nursing Documentation, Vital Signs Vital Signs: Last Vital Signs Temp 97.9 F 07/24/17 23:47 Pulse 82 07/25/17 02:19 Resp 18 07/25/17 02:19 BP 93/51 L 07/25/17 02:19 Pulse Ox 97 07/25/17 02:19 - Medical History PMH: Anxiety, Arthritis (coccyx), Asthma, Cardia Arrhythmia (5 years ago due to infection per pt asymptomatic at present), Fractures (coccyx), Gastritis, Gall Bladder Disease, Seizures (grand mal last seizure 6 months ago) Surgical History: Cholecystectomy, Endoscopy - [facility] Procedures INJECT/INFUSE ELECTROLYT (02/24/12) INJECT/INFUSE NEC (04/07/12) NEBULIZER THERAPY (02/20/13) Family History: States: Unknown Family Hx - Social History Hx Tobacco Use: No Hx Alcohol Use: No Hx Substance Use: No - Immunization History Hx Tetanus Toxoid Vaccination: No Hx Influenza Vaccination: No Hx Pneumococcal Vaccination: No Review Of Systems Constitutional: Negative for: Fever, Chills Cardiovascular: Negative for: Chest Pain, Palpitations Respiratory: Negative for: Cough, Shortness of Breath Gastrointestinal: Positive for: Nausea, Vomiting, Abdominal Pain. Negative for : Diarrhea Neurological: Positive for: Seizures Physical Exam - Physical Exam Appears: Non-toxic, No Acute Distress Skin: Warm, Dry Head: Atraumatic, Normacephalic Eye(s): bilateral: Normal Inspection, PERRL, EOMI Oral Mucosa: Moist Tongue: Normal Appearing, No Bite Neck: Normal ROM, Supple Chest: Symmetrical, No Deformity Cardiovascular: Rhythm Regular, No Murmur Respiratory: No Rales, No Rhonchi, No Wheezing Gastrointestinal/Abdominal: Soft, Tenderness (mild epigastric discomofrt ), No Distention, No Guarding, No Rebound Extremity: Normal ROM, No Tenderness Neurological/Psych: Oriented x3, Normal Speech, Normal Cognition, Normal Cranial Nerves, No Cerebellar Signs, Normal Motor, Normal Sensation Gait: Steady ED Course And Treatment - Laboratory Results Result Diagrams: 07/24/17 22:23 07/24/17 22:23 O2 Sat by Pulse Oximetry: 100 (room air ) Pulse Ox Interpretation: Normal Progress Note: Labs were ordered and patient was given Zofran and IV fluids. Reevaluation Time: 02:42 Disposition Counseled Patient/Family Regarding: Studies Performed, Diagnosis, Need For Followup, Rx Given - Disposition Referrals: [facility] [Outside] [facility] [Outside] Disposition: HOME/ ROUTINE Disposition Time: 22:58 Condition: FAIR Prescriptions: Ondansetron ODT [Zofran ODT] 1 odt PO BID PRN #10 odt PRN Reason: Nausea/Vomiting Instructions: Epilepsy (DC), Acute Nausea and Vomiting (ED) Forms: [employer] (Luxembourgish) - Clinical Impression Clinical Impression: Seizure, Nausea, Vomiting - Scribe Statement The provider has reviewed the documentation as recorded by the Scribe Damaris Petty All medical record entries made by the Scribe were at my direction and personally dictated by me. I have reviewed the chart and agree that the record accurately reflects my personal performance of the history, physical exam, medical decision making, and the department course for this patient. I have also personally directed, reviewed, and agree with the discharge instructions and disposition.
[2017-07-24] MEDS ORDERED: Sodium Chloride 0.9% 1,000 ML IV ONE (23:00)
[2017-07-24 23:48] VITALS: TEMP 97.9
[2017-07-25 01:31] LABS: RBC URINE 18 /hpf (0-3); URINE BACTERIA FEW (<OCC); URINE BILIRUBIN NEGATIVE (NEGATIVE); URINE BLOOD 2+ (NEGATIVE); URINE COLOR Yellow (YELLOW); URINE GLUCOSE (UA) NORMAL (Normal); URINE KETONE 1+ mg/dL (NEGATIVE); URINE LEUKOCYTE ESTERASE TRACE Leu/uL (Negative); URINE PROTEIN 1+ mg/dL (NEGATIVE); WBC URINE 8 /hpf (0-5)
[2017-07-25 02:21] VITALS: RESP 18
[2017-07-25 02:58] VITALS: BP 99/54; PULSE 84; O2SAT 96
== END 2017-07-25 03:01 | disposition home or self-care (01) ==
LOC: C.ER 21:01
DX: R56.9 Unspecified convulsions (principal); R11.2 Nausea with vomiting, unspecified; I49.9 Cardiac arrhythmia, unspecified
CPT/HCPCS: 80053; 80201; 81001; 84703; 85025; 96361; 96374; 99285; J2405; J7040

== ENCOUNTER 2017-11-12 07:53 | Emergency (ER) | payer MEDICAID ==
[2017-11-12 07:53] VITALS: BMI 20.2
[2017-11-12] MEDS ORDERED: Sodium Chloride 0.9% 1,000 ML IV STA (08:29)
[2017-11-12 08:47] LABS: BASO # 0.1 K/uL (0.0-0.2); EOS # 0.1 K/uL (0.0-0.7); EOS % 1.2 % (0.0-4.0); HEMOGLOBIN 13.5 g/dL (11.0-16.0); LYMPH # 1.6 K/uL (1.0-4.3); LYMPH % 22.5 % (20.0-40.0); MEAN CELL VOLUME 89.8 fL (81.0-99.0); MEAN CORPUSCULAR HEMOGLOBIN 31.8 pg (27.0-31.0); MEAN CORPUSCULAR HGB CONC 35.4 g/dL (33.0-37.0); MEAN PLATELET VOLUME 7.7 fL (7.2-11.7); MONO # 0.5 K/uL (0.0-0.8); MONO % 6.5 % (0.0-10.0); NEUT % 68.8 % (50.0-75.0); RBC 4.24 Mil/uL (3.80-5.20); RED CELL DISTRIBUTION WIDTH 12.9 % (11.5-14.5); WHITE BLOOD COUNT 7.3 K/uL (4.8-10.8)
--- NOTE | 2017-11-12 08:48 | C.PDOC ---
History Of Present Illness 27 year old female, with history of cholecystectomy, presents to ED for evaluation of upper abdominal pain radiating to mid back since last night. Pt reports associated diarrhea. Otherwise, denies fever, nausea, vomiting, dysuria , hematuria, cough, shortness of breath, or chest pain. Time Seen by Provider: 11/12/17 08:10 Chief Complaint (Nursing): Abdominal Pain History Per: Patient History/Exam Limitations: no limitations Onset/Duration Of Symptoms: Days Current Symptoms Are (Timing): Still Present Radiation Of Pain To:: Back Quality Of Discomfort: "Pain" Associated Symptoms: Diarrhea, Back Pain. denies: Fever, Chills, Nausea, Vomiting, Loss Of Appetite, Chest Pain, Constipation, Urinary Symptoms Exacerbating Factors: None Alleviating Factors: None Recent travel outside of the [place]: No Additional History Per: Patient Abnormal Vaginal Bleeding: No Last Menstral Period: currently Past Medical History Reviewed: Historical Data, Nursing Documentation, Vital Signs Vital Signs: Last Vital Signs Temp 98.3 F 11/12/17 12:55 Pulse 90 11/12/17 12:55 Resp 17 11/12/17 12:55 BP 91/56 L 11/12/17 12:55 Pulse Ox 100 11/12/17 12:55 - Medical History PMH: Anxiety, Arthritis (coccyx), Asthma, Cardia Arrhythmia (5 years ago due to infection per pt asymptomatic at present), Fractures (coccyx), Gastritis, Gall Bladder Disease, Seizures (LAST SEIZURE 1 WEEK AGO) Surgical History: Cholecystectomy, Endoscopy - [facility] Procedures INJECT/INFUSE ELECTROLYT (02/24/12) INJECT/INFUSE NEC (04/07/12) NEBULIZER THERAPY (02/20/13) Family History: States: Unknown Family Hx - Social History Hx Tobacco Use: No Hx Alcohol Use: No Hx Substance Use: No - Immunization History Hx Tetanus Toxoid Vaccination: Yes Hx Influenza Vaccination: No Hx Pneumococcal Vaccination: No Review Of Systems Except As Marked, All Systems Reviewed And Found Negative. Constitutional: Negative for: Fever, Chills Cardiovascular: Negative for: Chest Pain, Light Headedness Respiratory: Negative for: Cough, Shortness of Breath Gastrointestinal: Positive for: Abdominal Pain, Diarrhea. Negative for: Nausea , Vomiting, Melena, Hematochezia Genitourinary: Negative for: Dysuria, Frequency, Hematuria, Vaginal Discharge Musculoskeletal: Positive for: Back Pain Neurological: Negative for: Headache, Dizziness Physical Exam - Physical Exam Appears: Non-toxic, No Acute Distress Skin: Normal Color, Warm, Dry Head: Atraumatic, Normacephalic Eye(s): bilateral: Normal Inspection Oral Mucosa: Moist Neck: Supple Cardiovascular: Rhythm Regular, No Murmur Respiratory: Normal Breath Sounds, No Rales, No Rhonchi, No Wheezing Gastrointestinal/Abdominal: Soft, Tenderness (epigastric), No Guarding, No Rebound Back: Normal Inspection, No CVA Tenderness Extremity: Normal ROM, No Deformity Neurological/Psych: Oriented x3, Normal Speech ED Course And Treatment - Laboratory Results Result Diagrams: 11/12/17 08:41 11/12/17 08:41 O2 Sat by Pulse Oximetry: 100 (RA) Pulse Ox Interpretation: Normal Progress Note: Blood work, Urinalysis ordered and reviewed. Patient was given Morphine, Zofran, Protonix and IV fluids. On reassessment, patient is resting comfortably, abdomen remains soft, tolerating PO. Pt reports feeling better. Patient is being discharged home, with instructions to follow up with PMD in 1- 2 days for further evaluation, return to ED if symptoms persist or worsen. Disposition - Disposition Disposition: HOME/ ROUTINE Disposition Time: 12:30 Condition: STABLE Additional Instructions: Follow up with your PMD within 1-2 days. Return to ED if feel worse. Prescriptions: Famotidine [Pepcid] 20 mg PO BID #20 tab Ondansetron [Zofran Odt] 1 - 2 tab PO .Q4-6H PRN #20 odt PRN Reason: Nausea/Vomiting Instructions: Gastroenteritis (ED) Forms: [employer] (Albanian) - Clinical Impression Clinical Impression: Gastroenteritis - PA / SAFETY PERSON / Resident Statement MD/DO has reviewed & agrees with the documentation as recorded. - Scribe Statement The provider has reviewed the documentation as recorded by the Joseibyessi hernández All medical record entries made by the Joseibyessi were at my direction and personally dictated by me. I have reviewed the chart and agree that the record accurately reflects my personal performance of the history, physical exam, medical decision making, and the department course for this patient. I have also personally directed, reviewed, and agree with the discharge instructions and disposition.
[2017-11-12] MEDS ORDERED: Sodium Chloride 0.9% 1,000 ML ONE (08:49)
[2017-11-12] MEDS ORDERED: Morphine 4 MG/ML VIAL ONE (08:49)
[2017-11-12 09:00] LABS: ALB/GLOB RATIO 1.4 (1.0-2.1); ALBUMIN 3.9 g/dL (3.5-5.0); ALT/SGPT 24 U/L (9-52); AST/SGOT 25 U/L (14-36); BLOOD UREA NITROGEN 16 mg/dL (7-17); CALCIUM 8.2 mg/dl (8.6-10.4); GFR AFRICAN-AMERICAN > 60; GFR NON-AFRICAN AMERICAN > 60; LIPASE 75 U/L (23-300)
[2017-11-12 09:37] LABS: HCG,QUALITATIVE URINE NEGATIVE (NEGATIVE)
[2017-11-12 09:44] LABS: SQUAMOUS EPITHIAL 1 /hpf (0-5); URINE BACTERIA RARE (<OCC); URINE BILIRUBIN NEGATIVE (NEGATIVE); URINE BLOOD 3+ (NEGATIVE); URINE CLARITY Clear (Clear); URINE COLOR Yellow (YELLOW); URINE GLUCOSE (UA) NORMAL (Normal); URINE LEUKOCYTE ESTERASE NEG Leu/uL (Negative); URINE NITRATE NEGATIVE (NEGATIVE); URINE PROTEIN NEGATIVE (NEGATIVE); URINE UROBILINOGEN NORMAL mg/dL (0.2-1.0)
[2017-11-12] MEDS ORDERED: Lactated Ringer's 1,000 ML IV STA (09:49)
[2017-11-12] MEDS ORDERED: Lactated Ringer's 1,000 ML ONE (10:12)
[2017-11-12 12:33] VITALS: O2SAT 100
[2017-11-12 12:56] VITALS: BP 91/56; PULSE 90; RESP 17; TEMP 98.3
== END 2017-11-12 13:03 | disposition home or self-care (01) ==
LOC: C.ER 07:53
DX: K52.9 Noninfective gastroenteritis and colitis, unspecified (principal)
CPT/HCPCS: 80053; 81001; 83690; 84703; 85025; 94770; 96361; 96374; 96375; 99285; C9113; J1885; J2270; J2405; J7040; J7120

== ENCOUNTER 2017-11-17 20:24 | Emergency (ER) | payer MEDICAID ==
[2017-11-17 20:24] VITALS: BMI 20.2
[2017-11-17 20:49] VITALS: O2SAT 97
[2017-11-17] MEDS ORDERED: Sodium Chloride 0.9% 1,000 ML IV ONE (21:28)
[2017-11-17] MEDS ORDERED: Aluminum Hydroxide/Magnesium Hydroxide Susp (30 mL) PO STA (21:28)
--- NOTE | 2017-11-17 21:30 | C.PDOC ---
History Of Present Illness 27F c/o epigastric pain and vomiting for the last couple weeks, worsened today. worsened with any po intake. no f/c. diarrhea today as well. psh isac. Time Seen by Provider: 11/17/17 21:08 Chief Complaint (Nursing): GI Problem Past Medical History Vital Signs: Last Vital Signs Temp 98.6 F 11/17/17 20:46 Pulse 114 H 11/17/17 20:46 Resp 20 11/17/17 20:46 BP 107/75 11/17/17 20:46 Pulse Ox 97 11/17/17 21:35 - Medical History PMH: Anxiety, Arthritis (coccyx), Asthma, Cardia Arrhythmia (5 years ago due to infection per pt asymptomatic at present), Fractures (coccyx), Gastritis, Gall Bladder Disease, Seizures (LAST SEIZURE 1 WEEK AGO) Surgical History: Cholecystectomy (2016), Endoscopy (2017) - [facility] Procedures INJECT/INFUSE ELECTROLYT (02/24/12) INJECT/INFUSE NEC (04/07/12) NEBULIZER THERAPY (02/20/13) Family History: States: Other Other Family History: nc - Social History Hx Tobacco Use: No Hx Alcohol Use: No Hx Substance Use: No - Immunization History Hx Tetanus Toxoid Vaccination: Yes Hx Influenza Vaccination: No Hx Pneumococcal Vaccination: Yes Review Of Systems Constitutional: Negative for: Fever, Chills Cardiovascular: Negative for: Chest Pain Respiratory: Negative for: Cough, Shortness of Breath Gastrointestinal: Positive for: Nausea, Vomiting, Abdominal Pain, Diarrhea. Negative for: Melena, Hematochezia Genitourinary: Negative for: Dysuria Neurological: Negative for: Weakness, Numbness, Headache Physical Exam - Physical Exam Appears: Well, Non-toxic, No Acute Distress Skin: Warm, Dry Eye(s): bilateral: PERRL Oral Mucosa: Moist Cardiovascular: Rhythm Regular Respiratory: No Decreased Breath Sounds, No Accessory Muscle Use, No Rales, No Rhonchi, No Stridor, No Wheezing Gastrointestinal/Abdominal: Soft, Tenderness (epigastric), No Distention, No Guarding, No Rebound Extremity: No Swelling Neurological/Psych: Oriented x3, Other (no focal deficits) ED Course And Treatment - Laboratory Results Result Diagrams: 11/17/17 21:39 11/17/17 21:39 O2 Sat by Pulse Oximetry: 97 Disposition - Disposition Disposition: HOME/ ROUTINE Disposition Time: 23:34 Condition: STABLE Forms: [facility] [employer] (Hungarian) - Clinical Impression Clinical Impression: Vomiting, Epigastric abdominal pain
[2017-11-17] MEDS ORDERED: Aluminum Hydroxide/Magnesium Hydroxide Susp (30 mL) ONE (21:46)
[2017-11-17] MEDS ORDERED: Sodium Chloride 0.9% 1,000 ML ONE (21:46)
[2017-11-17 21:53] LABS: BASO # 0.1 K/uL (0.0-0.2); BASO % 0.6 % (0.0-2.0); HEMOGLOBIN 14.1 g/dL (11.0-16.0); MEAN CELL VOLUME 90.6 fL (81.0-99.0); MEAN CORPUSCULAR HEMOGLOBIN 30.9 pg (27.0-31.0); MEAN CORPUSCULAR HGB CONC 34.1 g/dL (33.0-37.0); MONO # 0.3 K/uL (0.0-0.8); MONO % 3.7 % (0.0-10.0); NEUT % 84.7 % (50.0-75.0); RBC 4.56 Mil/uL (3.80-5.20); RED CELL DISTRIBUTION WIDTH 12.7 % (11.5-14.5); WHITE BLOOD COUNT 9.5 K/uL (4.8-10.8)
[2017-11-17 22:03] LABS: ALB/GLOB RATIO 1.3 (1.0-2.1); ALBUMIN 4.4 g/dL (3.5-5.0); ALT/SGPT 24 U/L (9-52); AST/SGOT 26 U/L (14-36); BLOOD UREA NITROGEN 16 mg/dL (7-17); CALCIUM 8.7 mg/dl (8.6-10.4); GFR AFRICAN-AMERICAN > 60; GFR NON-AFRICAN AMERICAN > 60; LIPASE 55 U/L (23-300)
[2017-11-18 00:11] VITALS: BP 99/53; PULSE 93; RESP 16; TEMP 98.2
== END 2017-11-18 00:11 | disposition home or self-care (01) ==
LOC: C.ER 20:24
DX: R10.13 Epigastric pain (principal); R11.10 Vomiting, unspecified; I49.9 Cardiac arrhythmia, unspecified; K82.9 Disease of gallbladder, unspecified
CPT/HCPCS: 80053; 83690; 85025; 96361; 96374; 96375; 99284; J2405; J7040

== ENCOUNTER 2017-11-27 20:30 | Emergency (ER) | payer MEDICAID ==
[2017-11-27 20:31] VITALS: BMI 20.2
[2017-11-27 20:40] VITALS: RESP 18; TEMP 98.1
[2017-11-27 20:56] LABS: BASO % 0.1 % (0.0-2.0); HEMOGLOBIN 14.6 g/dL (11.0-16.0); LYMPH # 1.7 K/uL (1.0-4.3); LYMPH % 14.4 % (20.0-40.0); MEAN CELL VOLUME 89.9 fL (81.0-99.0); MEAN CORPUSCULAR HEMOGLOBIN 31.7 pg (27.0-31.0); MEAN CORPUSCULAR HGB CONC 35.2 g/dL (33.0-37.0); MEAN PLATELET VOLUME 7.8 fL (7.2-11.7); MONO # 0.9 K/uL (0.0-0.8); MONO % 7.7 % (0.0-10.0); NEUT # 9.2 K/uL (1.8-7.0); NEUT % 77.8 % (50.0-75.0); NRBC % 0.1 % (0.0-2.0); RBC 4.6 Mil/uL (3.80-5.20); RED CELL DISTRIBUTION WIDTH 12.6 % (11.5-14.5); WHITE BLOOD COUNT 11.9 K/uL (4.8-10.8)
[2017-11-27 21:05] LABS: ALB/GLOB RATIO 1.4 (1.0-2.1); ALBUMIN 4.9 g/dL (3.5-5.0); ALT/SGPT 22 U/L (9-52); AST/SGOT 24 U/L (14-36); BLOOD UREA NITROGEN 13 mg/dL (7-17); GFR AFRICAN-AMERICAN > 60; GFR NON-AFRICAN AMERICAN > 60
[2017-11-27 21:06] LABS: SQUAMOUS EPITHIAL 5 /hpf (0-5); URINE AMORPHOUS SEDIMENT RARE /ul (<OCC); URINE BILIRUBIN NEGATIVE (NEGATIVE); URINE BLOOD NEGATIVE (NEGATIVE); URINE CLARITY Hazy (Clear); URINE COLOR Yellow (YELLOW); URINE GLUCOSE (UA) NORMAL (Normal); URINE LEUKOCYTE ESTERASE NEG Leu/uL (Negative); URINE NITRATE NEGATIVE (NEGATIVE); URINE PROTEIN 1+ mg/dL (NEGATIVE); URINE UROBILINOGEN NORMAL mg/dL (0.2-1.0)
[2017-11-27 21:08] LABS: HCG,QUALITATIVE URINE NEGATIVE (NEGATIVE)
[2017-11-27] MEDS ORDERED: Sodium Chloride 0.9% 1,000 ML IV ONE (21:21)
--- NOTE | 2017-11-27 21:26 | C.PDOC ---
History Of Present Illness 27yo female with history of gastritis and seizures, presents to ED for evaluation after she had two witnessed seizures prior to arrival. Patient's seizures were witnessed by her boyfriend who is present at bedside. Patient states she takes topamax for her seizures and is compliant with the medication. She also reports mild nausea. Denies any other medical complaints. Time Seen by Provider: 11/27/17 21:12 Chief Complaint (Nursing): Seizure History Per: Patient History/Exam Limitations: no limitations Recent Seizure Activity Began: Just Before Arrival Number Of Seizures: Multiple (2) Length Of Seizures (Duration): Minutes Quality Of Seizure: Generalized Past Medical History Reviewed: Historical Data, Nursing Documentation, Vital Signs Vital Signs: Last Vital Signs Temp 98.1 F 11/27/17 20:37 Pulse 75 11/27/17 23:11 Resp 18 11/27/17 23:11 BP 118/72 11/27/17 23:11 Pulse Ox 99 11/27/17 23:11 - Medical History PMH: Anxiety, Arthritis (coccyx), Asthma, Cardia Arrhythmia (5 years ago due to infection per pt asymptomatic at present), Fractures (coccyx), Gastritis, Gall Bladder Disease, Seizures (LAST SEIZURE 1 WEEK AGO) Surgical History: Cholecystectomy (2017), Endoscopy (2017) - [facility] Procedures INJECT/INFUSE ELECTROLYT (02/24/12) INJECT/INFUSE NEC (04/07/12) NEBULIZER THERAPY (02/20/13) Family History: States: Unknown Family Hx - Social History Hx Tobacco Use: No Hx Alcohol Use: No Hx Substance Use: No - Immunization History Hx Tetanus Toxoid Vaccination: Yes Hx Influenza Vaccination: Yes Hx Pneumococcal Vaccination: Yes Review Of Systems Except As Marked, All Systems Reviewed And Found Negative. Constitutional: Negative for: Fever, Chills Cardiovascular: Negative for: Chest Pain Respiratory: Negative for: Shortness of Breath Gastrointestinal: Positive for: Nausea Neurological: Positive for: Seizures Physical Exam - Physical Exam Appears: Non-toxic, No Acute Distress Skin: Normal Color, Warm, Dry Head: Atraumatic, Normacephalic Eye(s): bilateral: Normal Inspection, PERRL, EOMI Neck: Normal ROM, Supple Chest: Symmetrical Cardiovascular: Rhythm Regular Respiratory: Normal Breath Sounds Gastrointestinal/Abdominal: Normal Exam, Soft, No Tenderness Back: Normal Inspection Extremity: Normal ROM Neurological/Psych: Oriented x3, Normal Speech, Normal Cognition, Normal Cranial Nerves, Normal Motor, Normal Sensation ED Course And Treatment - Laboratory Results Result Diagrams: 11/27/17 20:45 11/27/17 20:45 O2 Sat by Pulse Oximetry: 100 (RA) Pulse Ox Interpretation: Normal Medical Decision Making Medical Decision Making: Impression: Seizures- r/o metabolic intracranial patholoyg- labs imaging pending Plan: -- CT Head w/o contrast -- Zofran 4mg IVP -- IV Fluids 1040: pt reassesed observed 3 hours no seziure activiy in er. mild leukocytosis , no cardiopulm complaints, suspect inflamatory response. neuro intact head ct neg. stable for outpt fu. return precautions advised. Disposition - Disposition Referrals: [facility] [Outside] [facility] [Outside] Disposition: HOME/ ROUTINE Disposition Time: 22:43 Condition: STABLE Additional Instructions: follow up with specialist. return to er with worsening symptoms or concerns. Instructions: Recurrent Seizures in Adults (ED) Forms: [employer] (Italian) - Clinical Impression Clinical Impression: Seizure - Scribe Statement The provider has reviewed the documentation as recorded by the Scribe (Radha Paige) Provider Attestation: All medical record entries made by the Scribe were at my direction and personally dictated by me. I have reviewed the chart and agree that the record accurately reflects my personal performance of the history, physical exam, medical decision making, and the department course for this patient. I have also personally directed, reviewed, and agree with the discharge instructions and disposition.
[2017-11-27] MEDS ORDERED: Sodium Chloride 0.9% 1,000 ML ONE (21:41)
--- NOTE | 2017-11-27 22:40 | CT ---
EXAM: CT Head Without Intravenous Contrast CLINICAL HISTORY: 27 years old, female; Signs and symptoms; Other: Seizure TECHNIQUE: Axial computed tomography images of the head/brain without intravenous contrast. All CT scans at this facility use one or more dose reduction techniques, viz.: automated exposure control; ma/kV adjustment per patient size (including targeted exams where dose is matched to indication; i.e. head); or iterative reconstruction technique. COMPARISON: No relevant prior studies available. FINDINGS: Brain: No intracranial hemorrhage. No mass. No definite edema. Ventricles: No hydrocephalus. Bones/joints: No acute fracture. Soft tissues: Unremarkable. Sinuses: Tiny LEFT maxillary retention cyst. Mastoid air cells: No mastoid effusion. Orbits: Unremarkable as visualized. IMPRESSION: 1. No definite acute intracranial abnormality. 2. Incidental/non-acute findings are described above.
[2017-11-27 23:16] VITALS: BP 118/72; PULSE 75
[2017-11-28 00:20] VITALS: O2SAT 100
== END 2017-11-27 23:50 | disposition home or self-care (01) ==
LOC: C.ER 20:30 → SUPCPDRO 20:30 → C.ER 23:50
DX: G40.909 Epilepsy, unspecified, not intractable, without status epilepticus (principal)
CPT/HCPCS: 70450; 80053; 81001; 84703; 85025; 96361; 96374; 99285; J2405; J7040

== ENCOUNTER 2018-01-15 15:25 | Emergency (ER) | payer MEDICAID, OTHER ==
[2018-01-15 15:26] VITALS: BMI 20.2
[2018-01-15 15:46] VITALS: O2SAT 99
[2018-01-15] MEDS ORDERED: Sodium Chloride 0.9% 1,000 ML IV ONE (16:13)
--- NOTE | 2018-01-15 16:18 | C.PDOC ---
History Of Present Illness 27 yo female w/PMHx of gastrtitis, seizure ds, reports " ( months ", , hx of miscarriage, LNMP 11/17/17 BIBA for evaluation of lower abdominal pain gradually developed since today AM. Pt sts, " went to bathroom now and noted blood in my urine". Otherwise, pt denies fever, chills, recent illness, sore throat, CP, SOB, cough, palpitation, V/D, back pain, UTI sx, denies vaginal irritation or discharges. Pt admits, (+) care, last US 2 weeks ago- normal. Time Seen by Provider: 01/15/18 15:48 Chief Complaint (Nursing): Abdominal Pain History Per: Patient Onset/Duration Of Symptoms: Sudden Onset Past Medical History Reviewed: Historical Data, Nursing Documentation, Vital Signs Vital Signs: Last Vital Signs Temp 98.6 F 01/15/18 15:42 Pulse 103 H 01/15/18 15:42 Resp 18 01/15/18 15:42 BP 103/69 01/15/18 15:42 Pulse Ox 99 01/15/18 18:55 - Medical History PMH: Anxiety, Arthritis (coccyx), Asthma, Cardia Arrhythmia (5 years ago due to infection per pt asymptomatic at present), Fractures (coccyx), Gastritis, Gall Bladder Disease, Seizures (LAST SEIZURE 1 WEEK AGO) Surgical History: Cholecystectomy (2017), Endoscopy (2017) - [facility] Procedures INJECT/INFUSE ELECTROLYT (02/24/12) INJECT/INFUSE NEC (04/07/12) NEBULIZER THERAPY (02/20/13) Family History: States: Unknown Family Hx - Social History Hx Tobacco Use: No Hx Alcohol Use: No Hx Substance Use: No - Immunization History Hx Tetanus Toxoid Vaccination: Yes Hx Influenza Vaccination: Yes Hx Pneumococcal Vaccination: Yes Review Of Systems Except As Marked, All Systems Reviewed And Found Negative. Constitutional: Negative for: Fever, Chills ENT: Negative for: Throat Pain Cardiovascular: Negative for: Chest Pain Respiratory: Negative for: Cough, Shortness of Breath Gastrointestinal: Positive for: Abdominal Pain. Negative for: Nausea, Vomiting , Diarrhea Genitourinary: Positive for: Vaginal Bleeding. Negative for: Dysuria, Frequency , Vaginal Discharge Musculoskeletal: Negative for: Neck Pain, Back Pain Skin: Negative for: Rash Neurological: Negative for: Altered Mental Status, Headache, Dizziness Physical Exam - Physical Exam Appears: Well, Non-toxic, No Acute Distress Skin: Normal Color, Warm, Dry, No Rash Head: Normacephalic Eye(s): bilateral: PERRL Ear(s): Bilateral: Normal Nose: No Flaring, No Discharge Oral Mucosa: Moist, No Drooling Tongue: Normal Appearing Lips: Normal Appearing Throat: No Erythema, No Drooling Neck: Trachea Midline, Supple Cardiovascular: Rhythm Regular Respiratory: No Decreased Breath Sounds, No Accessory Muscle Use, No Stridor, No Wheezing Gastrointestinal/Abdominal: Soft, Tenderness (suprapubic), No Distention, No Guarding, No Rebound Back: No CVA Tenderness Extremity: Normal ROM, No Deformity, No Swelling Neurological/Psych: Oriented x3, Normal Speech ED Course And Treatment - Laboratory Results Result Diagrams: 01/15/18 16:42 01/15/18 16:42 Lab Interpretation: Normal Urine POC: Negative O2 Sat by Pulse Oximetry: 99 Pulse Ox Interpretation: Normal - CT Scan/US US transvaginal Other Rad Studies (CT/US): Radiology Report Reviewed CT/US Interpretation: HISTORY: abd. pain, vag bleeding abdominal pain, vaginal bleeding. LMP November 09, 2017. Beta HCG results: Less than 3 units. COMPARISON : None available. TECHNIQUE: Transabdominal, transvaginal. Real -time technique with 2D, duplex and color Doppler. FINDINGS: UTERUS: Measures 4.7 x 4.9 x 8 cm. Normal in size and appearance. No fibroid or other mass lesion seen. ENDOMETRIUM: Measures 5.5 mm in diameter. No ultrasound findings to suggest gestational sac, fluid, debris, mass or polyp or other pathologic process within the endometrium. CERVIX: Trace fluid in the cervical canal. RIGHT OVARY: Measures 2.1 x 2.8 x 3.2 cm. No solid mass. Normal flow. Simple cyst 1.8 x 1.4 cm. LEFT OVARY: Measures 3.2 x 4.6 x 4.1 cm. No solid mass. Normal flow. Simple cyst 2.1 x 3 cm. FREE FLUID: Trace free fluid identified in the pelvis/cul de sac. OTHER FINDINGS: None. IMPRESSION: No evidence of adnexal torsion. Bilateral simple ovarian cysts. Trace fluid in the cervical canal. Progress Note: On re-evaluation, pt is afebrie, heomdynamicaly stable. Non- toxic. Tolerate Po well in ED. ENT: no acute finidngs. Lungs: CTA B/L, BS equal B/L. Abd: benign, (-) guarding, (-) rebound. back: (-) CVA tenderness. Blood work review and appears normal. UA (+) RBC, (-) WBc. Preg (-). beta quant (-). US review, no rmal study, no IUP noted. results review with pt. Pt has cinical findings c/w suprapubic pain r/o menstrual cramping. Pt advised, . ref. to f/u with PMD, ROLLOUT MANAGER in 2-3 days for re-eavl. return if any worsening or new changes. Disposition Counseled Patient/Family Regarding: Studies Performed, Diagnosis, Need For Followup - Disposition [facility] Disposition: HOME/ ROUTINE Disposition Time: 18:15 Condition: STABLE Additional Instructions: Encourage fluids Follow up with ROLLOUT MANAGER In2 -3 days for re-evaluation. Return to ED if any worsening or new changes. Instructions: Menstrual Cramps (DC) Forms: [employer] (Faroese) - Clinical Impression Clinical Impression: Abdominal pain, Menstrual period late
[2018-01-15 16:54] LABS: BASO # 0.1 K/uL (0.0-0.2); BASO % 0.7 % (0.0-2.0); EOS % 0.6 % (0.0-4.0); HEMOGLOBIN 14.2 g/dL (11.0-16.0); LYMPH # 1.7 K/uL (1.0-4.3); LYMPH % 21.2 % (20.0-40.0); MEAN CELL VOLUME 90.4 fL (81.0-99.0); MEAN CORPUSCULAR HEMOGLOBIN 31.2 pg (27.0-31.0); MEAN CORPUSCULAR HGB CONC 34.5 g/dL (33.0-37.0); MONO # 0.5 K/uL (0.0-0.8); MONO % 6.2 % (0.0-10.0); NEUT # 5.8 K/uL (1.8-7.0); NEUT % 71.3 % (50.0-75.0); NRBC % 0.1 % (0.0-2.0); RBC 4.55 Mil/uL (3.80-5.20); RED CELL DISTRIBUTION WIDTH 12.5 % (11.5-14.5); WHITE BLOOD COUNT 8.1 K/uL (4.8-10.8)
[2018-01-15 16:58] LABS: HCG,QUALITATIVE URINE NEGATIVE (NEGATIVE)
[2018-01-15 17:01] LABS: SQUAMOUS EPITHIAL 16 /hpf (0-5); URINE BACTERIA MOD (<OCC); URINE BILIRUBIN NEGATIVE (NEGATIVE); URINE BLOOD 3+ (NEGATIVE); URINE CLARITY Hazy (Clear); URINE COLOR Red (YELLOW); URINE GLUCOSE (UA) NORMAL (Normal); URINE LEUKOCYTE ESTERASE NEG Leu/uL (Negative); URINE PROTEIN 1+ mg/dL (NEGATIVE); URINE UROBILINOGEN NORMAL mg/dL (0.2-1.0)
[2018-01-15 17:05] LABS: BLOOD UREA NITROGEN 10 mg/dL (7-17); CALCIUM 9.4 mg/dl (8.6-10.4); GFR AFRICAN-AMERICAN > 60; GFR NON-AFRICAN AMERICAN > 60
--- NOTE | 2018-01-15 18:13 | US ---
HISTORY: abd. pain, vag bleeding abdominal pain, vaginal bleeding. LMP November 09, 2017. Beta HCG results: Less than 3 units COMPARISON: None available. TECHNIQUE: Transabdominal, transvaginal. Real -time technique with 2D, duplex and color Doppler. FINDINGS: UTERUS: Measures 4.7 x 4.9 x 8 cm. Normal in size and appearance. No fibroid or other mass lesion seen. ENDOMETRIUM: Measures 5.5 mm in diameter. No ultrasound findings to suggest gestational sac, fluid, debris, mass or polyp or other pathologic process within the endometrium. CERVIX: Trace fluid in the cervical canal. RIGHT OVARY: Measures 2.1 x 2.8 x 3.2 cm. No solid mass. Normal flow. Simple cyst 1.8 x 1.4 cm. LEFT OVARY: Measures 3.2 x 4.6 x 4.1 cm. No solid mass. Normal flow. Simple cyst 2.1 x 3 cm FREE FLUID: Trace free fluid identified in the pelvis/cul de sac. OTHER FINDINGS: None. IMPRESSION: No evidence of adnexal torsion. Bilateral simple ovarian cysts. Trace fluid in the cervical canal.
[2018-01-15 19:18] VITALS: BP 92/53; PULSE 86; RESP 20; TEMP 98.1
== END 2018-01-15 19:17 | disposition home or self-care (01) ==
LOC: C.ER 15:25
DX: R10.9 Unspecified abdominal pain (principal)
CPT/HCPCS: 76830; 76856; 80048; 81001; 84702; 84703; 85025; 86850; 86900; 96360; 99285; J7040

== ENCOUNTER 2018-03-06 23:42 | Emergency (ER) | payer MEDICAID, OTHER ==
[2018-03-06 23:42] VITALS: BMI 20.2
--- NOTE | 2018-03-07 00:29 | C.PDOC ---
History Of Present Illness Patient with known seizure disorder, last seizure being 6 months ago, states that she had 2 seizures today. She denies any associated injury or head injury. She is on Topamax which she claims to be compliant with. Nausea with vomiting and mild diarrhea began after the seizures. She denies any recent illness, fever or chills. LMP 02/07 was normal. Time Seen by Provider: 03/07/18 00:19 Chief Complaint (Nursing): Seizure History Per: Patient History/Exam Limitations: no limitations Recent Seizure Activity Began: Just Before Arrival, Hours Ago: Number Of Seizures: Multiple Length Of Seizures (Duration): Unknown Quality Of Seizure: Generalized Post-ictal Period: No Past Medical History Vital Signs: Last Vital Signs Temp 98.4 F 03/06/18 23:47 Pulse 93 H 03/06/18 23:47 Resp 16 03/06/18 23:47 BP 100/63 03/06/18 23:47 Pulse Ox 100 03/06/18 23:47 - Medical History PMH: Anxiety, Arthritis (coccyx), Asthma, Cardia Arrhythmia (5 years ago due to infection per pt asymptomatic at present), Fractures (coccyx), Gastritis, Gall Bladder Disease, Seizures (LAST SEIZURE 03/06/2018) Denies: Chronic Kidney Disease Surgical History: Cholecystectomy (2017), Endoscopy (2017) - [facility] Procedures INJECT/INFUSE ELECTROLYT (02/24/12) INJECT/INFUSE NEC (04/07/12) NEBULIZER THERAPY (02/20/13) Family History: States: Unknown Family Hx - Social History Hx Tobacco Use: No Hx Alcohol Use: No Hx Substance Use: No - Immunization History Hx Tetanus Toxoid Vaccination: Yes Hx Influenza Vaccination: Yes Hx Pneumococcal Vaccination: Yes Review Of Systems Constitutional: Negative for: Fever, Chills, Sweats Eyes: Negative for: Pain, Vision Change Cardiovascular: Negative for: Chest Pain, Palpitations Respiratory: Negative for: Cough, Shortness of Breath Gastrointestinal: Positive for: Nausea, Vomiting, Diarrhea. Negative for: Abdominal Pain Physical Exam - Physical Exam Appears: No Acute Distress Skin: Normal Color, Warm, Dry Head: Atraumatic, Normacephalic Eye(s): bilateral: Normal Inspection, PERRL, EOMI Nose: Normal Oral Mucosa: Moist Tongue: No Laceration Lips: Normal Appearing Neck: Normal ROM Chest: Symmetrical, No Deformity, No Tenderness Cardiovascular: Rhythm Regular Respiratory: Normal Breath Sounds Gastrointestinal/Abdominal: Normal Exam, Soft Extremity: Bilateral: Atraumatic Neurological/Psych: Oriented x3, Normal Speech, Normal Cognition, Normal Motor, Normal Sensation, Normal Reflexes ED Course And Treatment O2 Sat by Pulse Oximetry: 100 Disposition - Disposition Disposition Time: 00:45 Condition: STABLE - Clinical Impression Clinical Impression: Seizure Physician Patient Turnover Patient Signed Over To: Sara López Handoff Comments: pending labs and CT
[2018-03-07 00:45] LABS: BASO # 0.1 K/uL (0.0-0.2); BASO % 0.6 % (0.0-2.0); EOS # 0.1 K/uL (0.0-0.7); EOS % 0.8 % (0.0-4.0); LYMPH # 2.8 K/uL (1.0-4.3); LYMPH % 19.5 % (20.0-40.0); MEAN CELL VOLUME 89.9 fL (81.0-99.0); MEAN CORPUSCULAR HEMOGLOBIN 30.9 pg (27.0-31.0); MEAN CORPUSCULAR HGB CONC 34.4 g/dL (33.0-37.0); MEAN PLATELET VOLUME 7.5 fL (7.2-11.7); MONO % 6.7 % (0.0-10.0); NEUT # 10.6 K/uL (1.8-7.0); NEUT % 72.4 % (50.0-75.0); NRBC % 0.1 % (0.0-2.0); RBC 4.54 Mil/uL (3.80-5.20); RED CELL DISTRIBUTION WIDTH 12.7 % (11.5-14.5); WHITE BLOOD COUNT 14.6 K/uL (4.8-10.8)
[2018-03-07 01:00] LABS: SQUAMOUS EPITHIAL 18 /hpf (0-5); URINE AMORPHOUS SEDIMENT RARE /ul (<OCC); URINE BACTERIA RARE (<OCC); URINE BILIRUBIN NEGATIVE (NEGATIVE); URINE BLOOD NEGATIVE (NEGATIVE); URINE CLARITY Turbid (Clear); URINE COLOR Yellow (YELLOW); URINE GLUCOSE (UA) NORMAL (Normal); URINE LEUKOCYTE ESTERASE 1+ Leu/uL (Negative); URINE PROTEIN NEGATIVE (NEGATIVE); URINE UROBILINOGEN NORMAL mg/dL (0.2-1.0)
[2018-03-07 01:13] LABS: HCG,QUALITATIVE URINE NEGATIVE (NEGATIVE)
[2018-03-07 01:19] LABS: ALB/GLOB RATIO 1.5 (1.0-2.1); ALBUMIN 4.3 g/dL (3.5-5.0); ALT/SGPT 51 U/L (9-52); AST/SGOT 36 U/L (14-36); BLOOD UREA NITROGEN 11 mg/dL (7-17); CALCIUM 8.7 mg/dl (8.6-10.4); GFR AFRICAN-AMERICAN > 60; GFR NON-AFRICAN AMERICAN > 60
[2018-03-07 01:21] LABS: BARBITURATES, UR NEGATIVE (NEGATIVE); BENZODIAZEPINES, UR NEGATIVE (NEGATIVE); OPIATES, UR NEGATIVE (NEGATIVE); PHENCYCLIDINE, UR NEGATIVE (NEGATIVE)
--- NOTE | 2018-03-07 01:44 | CT ---
EXAM: CT Head Without Intravenous Contrast CLINICAL HISTORY: 27 years old, female; Pain; Headache; Patient HX: 11-27-17; Additional info: Seizure TECHNIQUE: Axial computed tomography images of the head/brain without intravenous contrast. All CT scans at this facility use one or more dose reduction techniques, viz.: automated exposure control; ma/kV adjustment per patient size (including targeted exams where dose is matched to indication; i.e. head); or iterative reconstruction technique. COMPARISON: CT - HEAD W/O CONTRAST 2017-11-27 22:05 FINDINGS: Brain: No intracranial hemorrhage. No mass. No definite edema. Ventricles: No hydrocephalus. Bones/joints: No acute fracture. Soft tissues: Unremarkable. Sinuses: LEFT sphenoid retention cyst. Mastoid air cells: No mastoid effusion. Orbits: Unremarkable as visualized. IMPRESSION: 1. No definite acute intracranial abnormality. 2. Incidental/non-acute findings are described above.
[2018-03-07] MEDS ORDERED: Sodium Chloride 0.9% 1,000 ML IV ONE (02:24)
[2018-03-07] MEDS ORDERED: Sodium Chloride 0.9% 1,000 ML ONE (02:26)
[2018-03-07 04:24] VITALS: RESP 20; O2SAT 98
[2018-03-07 05:34] VITALS: BP 90/68; PULSE 78; TEMP 97.6
== END 2018-03-07 05:33 | disposition home or self-care (01) ==
LOC: C.ER 23:42
DX: G40.909 Epilepsy, unspecified, not intractable, without status epilepticus (principal)
CPT/HCPCS: 70450; 80053; 80324; 80345; 80346; 80349; 80353; 80358; 80361; 81001; 83992; 84703; 85025; 96361; 96374; 99285; J2405; J7040

== ENCOUNTER 2018-05-12 10:48 | Emergency (ER) | payer OTHER ==
[2018-05-12 10:56] VITALS: BMI 21.6
[2018-05-12] MEDS ORDERED: Sodium Chloride 0.9% 1,000 ML IV ONE (11:12)
[2018-05-12 11:45] LABS: BASO % 0.6 % (0.0-2.0); EOS % 0.7 % (0.0-4.0); HEMOGLOBIN 13.7 g/dL (11.0-16.0); LYMPH # 1.1 K/uL (1.0-4.3); LYMPH % 17.2 % (20.0-40.0); MEAN CELL VOLUME 89.6 fL (81.0-99.0); MEAN CORPUSCULAR HEMOGLOBIN 31.2 pg (27.0-31.0); MEAN CORPUSCULAR HGB CONC 34.9 g/dL (33.0-37.0); MEAN PLATELET VOLUME 7.6 fL (7.2-11.7); MONO # 0.4 K/uL (0.0-0.8); MONO % 5.7 % (0.0-10.0); NEUT # 4.7 K/uL (1.8-7.0); NEUT % 75.8 % (50.0-75.0); NRBC % 0.1 % (0.0-2.0); RBC 4.39 Mil/uL (3.80-5.20); WHITE BLOOD COUNT 6.3 K/uL (4.8-10.8)
[2018-05-12] MEDS ORDERED: Sodium Chloride 0.9% 1,000 ML ONE (11:47)
[2018-05-12 11:50] LABS: ALB/GLOB RATIO 1.4 (1.0-2.1); ALBUMIN 4.2 g/dL (3.5-5.0); ALT/SGPT 21 U/L (9-52); AST/SGOT 22 U/L (14-36); BLOOD UREA NITROGEN 13 mg/dL (7-17); GFR AFRICAN-AMERICAN > 60; GFR NON-AFRICAN AMERICAN > 60; LIPASE 59 U/L (23-300)
[2018-05-12 11:58] LABS: SQUAMOUS EPITHIAL 7 /hpf (0-5); URINE BACTERIA FEW (<OCC); URINE BILIRUBIN NEGATIVE (NEGATIVE); URINE BLOOD NEGATIVE (NEGATIVE); URINE CLARITY Hazy (Clear); URINE COLOR Yellow (YELLOW); URINE GLUCOSE (UA) NORMAL (Normal); URINE LEUKOCYTE ESTERASE TRACE Leu/uL (Negative); URINE PROTEIN NEGATIVE (NEGATIVE); URINE UROBILINOGEN NORMAL mg/dL (0.2-1.0)
--- NOTE | 2018-05-12 12:19 | C.PDOC ---
History Of Present Illness 27 year old female presents to ED c/o diffuse abdominal pain after eating Bengali food last night. Pt admits to diarrhea and nausea. Otherwise denies vomiting, blood in stool, urinary symptoms, fever, chills, or recent travel. Time Seen by Provider: 05/12/18 10:58 Chief Complaint (Nursing): Abdominal Pain History Per: Patient History/Exam Limitations: no limitations Onset/Duration Of Symptoms: Days Current Symptoms Are (Timing): Still Present Location Of Pain/Discomfort: Diffuse Radiation Of Pain To:: None Quality Of Discomfort: "Pain" Associated Symptoms: Nausea, Diarrhea Exacerbating Factors: None Alleviating Factors: None Recent travel outside of the [place]: No Additional History Per: Patient Past Medical History Reviewed: Historical Data, Nursing Documentation, Vital Signs Vital Signs: Last Vital Signs Temp 98 F 05/12/18 12:48 Pulse 86 05/12/18 12:48 Resp 18 05/12/18 12:48 BP 126/83 05/12/18 12:48 Pulse Ox 98 05/12/18 12:48 - Medical History PMH: Anxiety, Arthritis (coccyx), Asthma, Cardia Arrhythmia (5 years ago due to infection per pt asymptomatic at present), Fractures (coccyx), Gastritis, Gall Bladder Disease, Seizures (LAST SEIZURE 03/06/2018) Denies: Chronic Kidney Disease Surgical History: Cholecystectomy (2017), Endoscopy (2017) - [facility] Procedures INJECT/INFUSE ELECTROLYT (02/24/12) INJECT/INFUSE NEC (04/07/12) NEBULIZER THERAPY (02/20/13) Family History: States: Unknown Family Hx - Social History Hx Tobacco Use: No Hx Alcohol Use: No Hx Substance Use: No - Immunization History Hx Tetanus Toxoid Vaccination: Yes Hx Influenza Vaccination: Yes Hx Pneumococcal Vaccination: Yes Review Of Systems Except As Marked, All Systems Reviewed And Found Negative. Constitutional: Negative for: Fever, Chills Gastrointestinal: Positive for: Nausea, Abdominal Pain, Diarrhea. Negative for : Vomiting, Melena, Hematochezia Genitourinary: Negative for: Dysuria, Frequency, Hematuria Musculoskeletal: Negative for: Back Pain Physical Exam - Physical Exam Appears: Non-toxic, No Acute Distress Skin: Normal Color, Warm, Dry Head: Atraumatic, Normacephalic Eye(s): bilateral: Normal Inspection Oral Mucosa: Moist Neck: Supple Cardiovascular: Rhythm Regular Respiratory: Normal Breath Sounds, No Rales, No Rhonchi, No Wheezing Gastrointestinal/Abdominal: Bowel Sounds, Soft, Tenderness (minimal diffuse), No Guarding, No Rebound Back: No CVA Tenderness Extremity: Normal ROM Neurological/Psych: Oriented x3, Normal Speech ED Course And Treatment - Laboratory Results Result Diagrams: 05/12/18 11:31 05/12/18 11:31 O2 Sat by Pulse Oximetry: 96 (RA) Pulse Ox Interpretation: Normal Medical Decision Making Medical Decision Making: Plan: Blood work Urinalysis Pepcid, Zofran, IV fluids Disposition - Disposition Disposition: HOME/ ROUTINE Disposition Time: 12:00 Condition: IMPROVED Additional Instructions: SCOTT HERRING, thank you for letting us take care of you today. The emergency medical care you received today was directed at your acute symptoms. If you were prescribed any medication, please fill it and take as directed. It may take several days for your symptoms to resolve. Return to the Emergency Department if your symptoms worsen, do not improve, or if you have any other problems. Please contact your doctor or call one of the physicians/clinics you have been referred to that are listed on the Patient Visit Information form that is included in your discharge packet. Bring any paperwork you were given at discharge with you along with any medications you are taking to your follow up visit. Our treatment cannot replace ongoing medical care by a primary care provider outside of the emergency department. Thank you for allowing the [facility] team to be part of your care today. Stay hydrated throughout the day. Follow up with your primary care doctor in 2-3 days for re-evaluation and further management. Instructions: Diarrhea in Adolescents and Adults Forms: [employer] (Setswana) - Clinical Impression Clinical Impression: Diarrhea - Scribe Statement The provider has reviewed the documentation as recorded by the Scribe KP All medical record entries made by the Scribe were at my direction and personally dictated by me. I have reviewed the chart and agree that the record accurately reflects my personal performance of the history, physical exam, medical decision making, and the department course for this patient. I have also personally directed, reviewed, and agree with the discharge instructions and disposition.
[2018-05-12 12:49] VITALS: BP 126/83; PULSE 86; RESP 18; TEMP 98
[2018-05-12 18:34] VITALS: O2SAT 96
== END 2018-05-12 12:49 | disposition home or self-care (01) ==
LOC: C.ER 10:48
DX: R19.7 Diarrhea, unspecified (principal)
CPT/HCPCS: 80053; 81001; 83690; 85025; 96374; 96375; 99284; J2405; J7030

== ENCOUNTER 2018-05-24 08:54 | Emergency (ER) | payer OTHER ==
[2018-05-24 08:55] VITALS: BMI 21.6
[2018-05-24 09:04] VITALS: O2SAT 100
[2018-05-24] MEDS ORDERED: Sodium Chloride 0.9% 1,000 ML IV ONE (09:13)
--- NOTE | 2018-05-24 09:14 | C.PDOC ---
History Of Present Illness 27 y/o female presents to the ER for evaluation of a recurrent breakthrough seizure [employer]. Patient states that she is compliant with Topamax and she has occasional break through seizures. Patient reports that the current seizure was similar to her prior episodes. She notes that she had 1 episode of vomiting on route. However, she just has residual nausea now. Denies having injuries. Time Seen by Provider: 05/24/18 09:05 Chief Complaint (Nursing): Seizure History Per: Patient History/Exam Limitations: no limitations Severity: Moderate Past Medical History Reviewed: Historical Data, Nursing Documentation, Vital Signs Vital Signs: Last Vital Signs Temp 98.2 F 05/24/18 10:25 Pulse 94 H 05/24/18 10:25 Resp 18 05/24/18 10:25 BP 95/64 L 05/24/18 10:25 Pulse Ox 100 05/24/18 10:25 - Medical History PMH: Anxiety, Arthritis (coccyx), Asthma, Cardia Arrhythmia (5 years ago due to infection per pt asymptomatic at present), Fractures (coccyx), Gastritis, Gall Bladder Disease, Seizures (LAST SEIZURE 03/06/2018) Denies: Chronic Kidney Disease Surgical History: Cholecystectomy (2016), Endoscopy (2017) - [facility] Procedures INJECT/INFUSE ELECTROLYT (02/24/12) INJECT/INFUSE NEC (04/07/12) NEBULIZER THERAPY (02/20/13) Family History: States: No Known Family Hx - Social History Hx Tobacco Use: No Hx Alcohol Use: No Hx Substance Use: No - Immunization History Hx Tetanus Toxoid Vaccination: Yes Hx Influenza Vaccination: Yes Hx Pneumococcal Vaccination: Yes Review Of Systems Except As Marked, All Systems Reviewed And Found Negative. Constitutional: Negative for: Fever, Chills Gastrointestinal: Positive for: Vomiting (currently resolved) Neurological: Positive for: Seizures (currently resolved) Physical Exam - Physical Exam Appears: Other (mild distress) Skin: Normal Color, Warm, Dry Head: Atraumatic, Normacephalic Eye(s): bilateral: Normal Inspection Respiratory: Other (NARD) Extremity: Bilateral: Atraumatic Neurological/Psych: Other (AO x3, appropriate interaction, no active seizure) ED Course And Treatment O2 Sat by Pulse Oximetry: 100 (RA) Pulse Ox Interpretation: Normal Medical Decision Making Medical Decision Making: Plan: --Reglan IV --Toradol IV --IV Fluids --Tylenol PO Disposition Counseled Patient/Family Regarding: Diagnosis, Need For Followup - Disposition Referrals: YOUR,PMD [Other] Disposition: HOME/ ROUTINE Disposition Time: 10:30 Condition: IMPROVED Instructions: Seizures, Adult (DC) Forms: [facility] (Sami) - Clinical Impression Clinical Impression: Headache, Post-ictal state, Breakthrough seizure, Nausea & vomiting - Scribe Statement The provider has reviewed the documentation as recorded by the Bruce Burnett Provider Attestation: All medical record entries made by the Bruce were at my direction and personally dictated by me. I have reviewed the chart and agree that the record accurately reflects my personal performance of the history, physical exam, medical decision making, and the department course for this patient. I have also personally directed, reviewed, and agree with the discharge instructions and disposition.
[2018-05-24] MEDS ORDERED: Sodium Chloride 0.9% 1,000 ML ONE (09:21)
[2018-05-24 10:26] VITALS: BP 95/64; PULSE 94; RESP 18; TEMP 98.2
== END 2018-05-24 10:40 | disposition home or self-care (01) ==
LOC: C.ER 08:54
DX: R56.9 Unspecified convulsions (principal); R51 Headache; R11.2 Nausea with vomiting, unspecified
CPT/HCPCS: 82948; 96374; 99285; J1885; J2765; J7030

== ENCOUNTER 2018-07-14 03:37 | Emergency (ER) | payer OTHER ==
[2018-07-14 03:38] VITALS: BMI 21.6
[2018-07-14 03:51] VITALS: RESP 16; TEMP 97.7
--- NOTE | 2018-07-14 04:22 | C.PDOC ---
History Of Present Illness <Sara López - Last Filed: 07/14/18 04:28> <Ariana Harris - Last Filed: 07/14/18 05:58> 27 year old female presents to the ED complaining of chest pressure that began at 0200 this morning. Pain is described as pressure and located in the midsternal chest. She reports pressure has improved but it is worse with breathing. She denies any SOB, palpitations, diaphoresis, cough, or urinary symptoms. She denies any recent travel or use of oral contraceptives. (Ariana Mcdonald) <Sara López - Last Filed: 07/14/18 04:28> History Per: Patient History/Exam Limitations: no limitations Onset/Duration Of Symptoms: Hrs Current Symptoms Are (Timing): Still Present Severity: Moderate Quality: Pressure Associated Symptoms: denies: Dyspnea, Diaphoresis Exacerbating Factors: Deep Breathing <Ariana Harris - Last Filed: 07/14/18 05:58> Time Seen by Provider: 07/14/18 04:03 Chief Complaint (Nursing): Chest Pain Past Medical History Reviewed: Historical Data, Nursing Documentation, Vital Signs - Medical History PMH: Anxiety, Arthritis (coccyx), Asthma, Cardia Arrhythmia (5 years ago due to infection per pt asymptomatic at present), Fractures (coccyx), Gastritis, Gall Bladder Disease, Post Traumatic Stress Disorder, Seizures Denies: Chronic Kidney Disease Surgical History: Cholecystectomy (2017), Endoscopy (2017) Family History: States: No Known Family Hx - Social History Hx Tobacco Use: No Hx Alcohol Use: No Hx Substance Use: Yes - Immunization History Hx Tetanus Toxoid Vaccination: Yes Hx Influenza Vaccination: Yes Hx Pneumococcal Vaccination: Yes <Ariana Harris - Last Filed: 07/14/18 05:58> Vital Signs: Last Vital Signs Temp 97.7 F 07/14/18 03:49 Pulse 76 07/14/18 05:27 Resp 16 07/14/18 05:27 BP 100/65 07/14/18 03:49 Pulse Ox 99 07/14/18 05:27 - [facility] Procedures INJECT/INFUSE ELECTROLYT (02/24/12) INJECT/INFUSE NEC (04/07/12) NEBULIZER THERAPY (02/20/13) Review Of Systems Except As Marked, All Systems Reviewed And Found Negative. Cardiovascular: Positive for: Chest Pain. Negative for: Palpitations Respiratory: Negative for: Cough, Shortness of Breath Genitourinary: Negative for: Dysuria, Frequency, Hematuria <Ariana Harris Last Filed: 07/14/18 05:58> Physical Exam - Physical Exam Appears: Non-toxic Skin: Warm, Dry Head: Normacephalic Eye(s): bilateral: Normal Inspection Nose: Normal Oral Mucosa: Moist Neck: Normal ROM Chest: Tenderness (Mild tenderness to midsternal region to palpation. ) Cardiovascular: Rhythm Regular Respiratory: Normal Breath Sounds, No Rales, No Rhonchi, No Wheezing Gastrointestinal/Abdominal: Soft, No Tenderness Extremity: Normal ROM Neurological/Psych: Oriented x3, Normal Speech Gait: Steady <Ariana Harris Last Filed: 07/14/18 05:58> ED Course And Treatment ECG: Interpreted By Me, Viewed By Me ECG Rhythm: Sinus Rhythm (95), Nonspecific Changes <Sara López - Last Filed: 07/14/18 04:28> ECG: Viewed By Me ECG Rhythm: Sinus Rhythm Interpretation Of ECG: No ST/T changes Rate From EC O2 Sat by Pulse Oximetry: 97 (RA) Pulse Ox Interpretation: Normal Progress Note: CXR ordered. Results pending. <Ariana Harris - Last Filed: 07/14/18 05:58> Disposition <Sara López Last Filed: 07/14/18 04:28> Counseled Patient/Family Regarding: Diagnosis, Need For Followup - Disposition Disposition Time: 05:57 <Ariana Harris - Last Filed: 07/14/18 05:58> - Disposition Referrals: [facility] [Outside] Disposition: HOME/ ROUTINE Condition: STABLE Instructions: Anxiety, Adult (DC) Forms: [facility] (Botswanan) - Clinical Impression Clinical Impression: Anxiety <Sara López Last Filed: 07/14/18 04:28> - PA / NIB ADJUSTER / Resident Statement MD/DO has reviewed & agrees with the documentation as recorded. - Scribe Statement The provider has reviewed the documentation as recorded by the Scribe <Ariana Harris - Last Filed: 07/14/18 05:58> - Scribe Statement Renay Wolff All medical record entries made by the Scribe were at my direction and personally dictated by me. I have reviewed the chart and agree that the record accurately reflects my personal performance of the history, physical exam, medical decision making, and the department course for this patient. I have also personally directed, reviewed, and agree with the discharge instructions and disposition. (Ariana Harris)
[2018-07-14 05:28] VITALS: PULSE 76
[2018-07-14 05:58] VITALS: BP 102/68; O2SAT 97
--- NOTE | 2018-07-14 10:28 | RAD ---
Date of service: 07/14/2018 HISTORY: chest pain COMPARISON: No prior. TECHNIQUE: Chest PA and lateral FINDINGS: LUNGS: No active pulmonary disease. PLEURA: No significant pleural effusion identified. No pneumothorax apparent. CARDIOVASCULAR: Normal. OSSEOUS STRUCTURES: No significant abnormalities. VISUALIZED UPPER ABDOMEN: Normal. OTHER FINDINGS: None. IMPRESSION: No active disease.
--- NOTE | 2018-07-15 19:05 | CARD ---
APPROVED REPORT Date of service: 07/14/2018 EKG Measurement Heart [id number] <Conclusion> Normal sinus rhythm Normal ECG
== END 2018-07-14 06:02 | disposition home or self-care (01) ==
LOC: C.ER 03:37
DX: F41.9 Anxiety disorder, unspecified (principal)

== ENCOUNTER 2018-08-07 01:15 | Emergency (ER) | payer OTHER ==
[2018-08-07 01:16] VITALS: BMI 21.6
[2018-08-07 01:33] VITALS: O2SAT 99
--- NOTE | 2018-08-07 02:04 | C.PDOC ---
History Of Present Illness 27 y/o female presents to the ED for evaluation of diffuse abdominal cramping pain associated with constipation for the past 4 days. Patient states that she tried to place fleet enema to herself today without significant success. Otherwise, pt denies any previous history of constipation, fever, chills, sore throat, CP, SOB, dyspnea, nausea or vomiting, back pain, UTI sx. Ambulate to Ed for evaluation, not in any apparent distress.. Time Seen by Provider: 08/07/18 01:22 Chief Complaint (Nursing): Abdominal Pain History Per: Patient History/Exam Limitations: no limitations Onset/Duration Of Symptoms: Days (x4) Current Symptoms Are (Timing): Still Present Location Of Pain/Discomfort: Diffuse Quality Of Discomfort: Cramping, "Pain" Associated Symptoms: Constipation Alleviating Factors: None Last Bowel Movement: Days Ago Past Medical History Reviewed: Historical Data, Nursing Documentation, Vital Signs Vital Signs: Last Vital Signs Temp 98.3 F 08/07/18 01:23 Pulse 89 08/07/18 01:23 Resp 16 08/07/18 01:23 BP 116/71 08/07/18 01:23 Pulse Ox 99 08/07/18 01:23 - Medical History PMH: Anxiety, Arthritis (coccyx), Asthma, Cardia Arrhythmia (5 years ago due to infection per pt asymptomatic at present), Fractures (coccyx), Gastritis, Gall Bladder Disease, Post Traumatic Stress Disorder, Seizures Denies: Chronic Kidney Disease Surgical History: Cholecystectomy (2017), Endoscopy (2017) - [facility] Procedures INJECT/INFUSE ELECTROLYT (02/24/12) INJECT/INFUSE NEC (04/07/12) NEBULIZER THERAPY (02/20/13) Family History: States: Unknown Family Hx - Social History Hx Tobacco Use: No Hx Alcohol Use: No Hx Substance Use: No - Immunization History Hx Tetanus Toxoid Vaccination: Yes Hx Influenza Vaccination: Yes Hx Pneumococcal Vaccination: Yes Review Of Systems Constitutional: Negative for: Fever, Chills Cardiovascular: Negative for: Chest Pain Respiratory: Negative for: Shortness of Breath Gastrointestinal: Positive for: Abdominal Pain, Constipation. Negative for: Vomiting, Diarrhea Genitourinary: Negative for: Dysuria, Frequency, Incontinence, Hematuria, Vaginal Bleeding Neurological: Negative for: Weakness, Dizziness Physical Exam - Physical Exam Appears: Well, Non-toxic, No Acute Distress Skin: Normal Color, Warm, Dry, No Rash Head: Normacephalic Eye(s): bilateral: PERRL Oral Mucosa: Moist Throat: No Erythema, No Drooling Neck: Trachea Midline, Supple Cardiovascular: Rhythm Regular, No Murmur, No JVD Respiratory: No Decreased Breath Sounds, No Accessory Muscle Use, No Stridor, No Wheezing Gastrointestinal/Abdominal: Soft, No Tenderness, No Distention, No Guarding, No Rebound Back: No CVA Tenderness Extremity: Normal ROM, No Deformity, No Swelling Neurological/Psych: Oriented x3, Normal Speech ED Course And Treatment O2 Sat by Pulse Oximetry: 99 (RA) Pulse Ox Interpretation: Normal - Other Rad Obstructive serial X-Ray: Interpreted by Me, Viewed By Me Interpretation: (-) air-fluid level. (+) gas pattern c/w constipation Progress Note: UA and urine preg ordered. X-ray obstructive series taken and reviewed. Administered Colace and 1x fleet enema. Pt was OBS in ED for 2 hours and reports moderate improvement in sx. Pt admits, "was able and had large BM". On re-eval, afebrile, hemodynamicalys table. Non-toxic. Tolerate Po well in ED. Abd: benign, (-) guarding, (-) rebound, (-) localized tenderness. back: (- ) CVA tenderness. Obstructive serial review (-) air-fluid level. Pt has clinical findings c/w constipation. Pt advised. ref. to F/u with PM Din 2-3 days for re-eavl. return if any new chnages. Disposition Counseled Patient/Family Regarding: Studies Performed, Diagnosis, Need For Followup, Rx Given - Disposition Referrals: at [facility] [Outside] Disposition: HOME/ ROUTINE Disposition Time: 03:36 Condition: STABLE Additional Instructions: Encourage fluids Diet restriction Follow up with PMD in 2-3 days for re-evaluation.return to ED if any worsening or new changes. 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 - Scribe Statement The provider has reviewed the documentation as recorded by the Scribe (Teri Urbano) All medical record entries made by the Scribe were at my direction and personally dictated by me. I have reviewed the chart and agree that the record accurately reflects my personal performance of the history, physical exam, medical decision making, and the department course for this patient. I have also personally directed, reviewed, and agree with the discharge instructions and disposition.
[2018-08-07 04:17] VITALS: BP 118/72; PULSE 75; RESP 18; TEMP 98.2
--- NOTE | 2018-08-07 10:21 | RAD ---
Date of service: 08/07/2018 PROCEDURE: Radiographs of the chest and abdomen (obstructive series) HISTORY: pain COMPARISON: No prior. TECHNIQUE: AP radiograph of the chest, with upright and supine radiographs of the abdomen. FINDINGS: CHEST: Lungs: Clear. Cardiovascular: Normal size heart. No pulmonary vascular congestion. Pleura: No pleural fluid. No pneumothorax. Other findings: None. ABDOMEN AND PELVIS: Bowel: Unremarkable bowel gas pattern. No evidence of mechanical obstruction. Free air: None. Bones: Unremarkable. Other findings: None. IMPRESSION: Unremarkable radiographs of chest and abdomen. No evidence of mechanical bowel obstruction.
== END 2018-08-07 04:17 | disposition home or self-care (01) ==
LOC: C.ER 01:15
DX: K59.00 Constipation, unspecified (principal)

== ENCOUNTER 2018-08-26 10:27 | Emergency (ER) | payer OTHER ==
[2018-08-26 10:28] VITALS: BMI 21.6
[2018-08-26 10:45] VITALS: BP 106/72; PULSE 111; RESP 18; TEMP 98.2; O2SAT 100
--- NOTE | 2018-08-26 11:02 | C.PDOC ---
History Of Present Illness 27-year-old female presents to the ED for evaluation of itchy rash that began approx 15 minutes ago. Patient reports she had just used a new perfume earlier today, which she sprayed to her face, forearms, and jeans. Shortly after that, patient developed itchy rash to her face, neck, and arms. 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 Otherwise patient denies throat/lip swelling, sensation of throat closing up, shortness of breath, wheezing. Time Seen by Provider: 08/26/18 10:41 Chief Complaint (Nursing): Abnormal Skin Integrity History Per: Patient History/Exam Limitations: no limitations Onset/Duration Of Symptoms: Mins Current Symptoms Are (Timing): Better Quality Of Symptoms: Itching Past Medical History Reviewed: Historical Data, Nursing Documentation, Vital Signs Vital Signs: Last Vital Signs Temp 98.2 F 08/26/18 10:44 Pulse 111 H 08/26/18 10:44 Resp 18 08/26/18 10:44 BP 106/72 08/26/18 10:44 Pulse Ox 100 08/26/18 10:44 - Medical History PMH: Anxiety, Arthritis (coccyx), Asthma, Cardia Arrhythmia (5 years ago due to infection per pt asymptomatic at present), Fractures (coccyx), Gastritis, Gall Bladder Disease, Post Traumatic Stress Disorder, Seizures Surgical History: Cholecystectomy (2017), Endoscopy (2017) - [facility] Procedures INJECT/INFUSE ELECTROLYT (02/24/12) INJECT/INFUSE NEC (04/07/12) NEBULIZER THERAPY (02/20/13) Family History: States: No Known Family Hx - Social History Hx Tobacco Use: No Hx Alcohol Use: No Hx Substance Use: No - Immunization History Hx Tetanus Toxoid Vaccination: Yes Hx Influenza Vaccination: Yes Hx Pneumococcal Vaccination: Yes Review Of Systems Constitutional: Negative for: Fever Eyes: Negative for: Vision Change ENT: Negative for: Mouth Swelling, Throat Swelling Respiratory: Negative for: Shortness of Breath, Wheezing Gastrointestinal: Negative for: Nausea, Vomiting, Abdominal Pain Skin: Positive for: Rash Physical Exam - Physical Exam Appears: Well, Non-toxic, No Acute Distress Skin: Warm, Rash (Urticaria to dorsal aspects of bilateral hands, scattered maculopapular rash to the forearms and face) Head: Normacephalic Eye(s): bilateral: Normal Inspection Oral Mucosa: Moist Tongue: Normal Appearing, No Swelling Lips: Normal Appearing, No Swelling Throat: Normal (OP is clear), No Erythema, No Exudate, No Drooling Neck: Normal ROM Chest: Symmetrical Cardiovascular: Rhythm Regular Respiratory: Normal Breath Sounds, No Accessory Muscle Use, No Rales, No Rhonchi, No Stridor, No Wheezing Neurological/Psych: Oriented x3 ED Course And Treatment O2 Sat by Pulse Oximetry: 100 (RA) Pulse Ox Interpretation: Normal Progress Note: Patient given PO Prednisone, Pepcid and Benadryl. On reassessment, she reports improvement of her symptoms. Rxs for prednisone and benadryl given, and patient instructed to follow up with PMD/clinic in 1-2 days. She understands she should return to ED if symptoms worsen. Reevaluation Time: 11:30 Reassessment Condition: Improved Disposition Counseled Patient/Family Regarding: Studies Performed, Diagnosis, Need For Followup - Disposition Referrals: Finn Dowling JD, MD [Medical Doctor] - Disposition: HOME/ ROUTINE Disposition Time: 11:30 Condition: STABLE Additional Instructions: FOLLOW UP WITH YOUR DOCTOR IN 1-2 DAYS USE MEDICATIONS DIRECTED RETURN TO ER IF SYMPTOMS WORSEN Prescriptions: DiphenhydrAMINE [Benadryl] 25 mg PO Q6 PRN #20 cap PRN Reason: Itching / Pruritus RX: predniSONE [predniSONE Tab] 40 mg PO DAILY #8 tab Instructions: Isabell (DC) Forms: [employer] (Latvian) Print Language: SINHALA - Clinical Impression Clinical Impression: Urticaria, Allergic contact dermatitis - Scribe Statement The provider has reviewed the documentation as recorded by the Bruce Urbano Provider Attestation: All medical record entries made by the Bruce were at my direction and personally dictated by me. I have reviewed the chart and agree that the record accurately reflects my personal performance of the history, physical exam, medical decision making, and the department course for this patient. I have also personally directed, reviewed, and agree with the discharge instructions and disposition.
== END 2018-08-26 11:30 | disposition home or self-care (01) ==
LOC: C.ER 10:27
DX: L23.9 Allergic contact dermatitis, unspecified cause (principal)

== ENCOUNTER 2018-09-28 00:06 | Emergency (ER) | payer OTHER ==
[2018-09-28 00:07] VITALS: BMI 21.6
[2018-09-28] MEDS ORDERED: Sodium Chloride 0.9% 1,000 ML IV ONE ×2 (00:33→01:39)
--- NOTE | 2018-09-28 00:33 | C.PDOC ---
History Of Present Illness 27 year old female with PMHx of seizure disorder is brought to the ED for evaluation. Patient is taking topamax and keppra and is complaint with her medications. 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 Patient is not post ictal at this time. Patient denies drug or alcohol use today. Patient denies fever, chills, nausea, vomit, diarrhea, headache, dizziness, CP, SOB, weakness, numbness, bowel incontinence. Time Seen by Provider: 09/28/18 00:32 Chief Complaint (Nursing): Seizure History Per: Patient History/Exam Limitations: no limitations Recent Seizure Activity Began: Just Before Arrival Number Of Seizures: One Length Of Seizures (Duration): Unknown Quality Of Seizure: Generalized Precipitating Factor(s): None Post-ictal Period: No Severity: None Additional History Per: Patient Past Medical History Reviewed: Historical Data, Nursing Documentation, Vital Signs Vital Signs: Last Vital Signs Temp 97.5 F L 09/28/18 00:11 Pulse 104 H 09/28/18 00:11 Resp 20 09/28/18 00:11 BP 110/74 09/28/18 00:11 Pulse Ox 99 09/28/18 00:11 - Medical History PMH: Anxiety, Arthritis (coccyx), Asthma, Cardia Arrhythmia (5 years ago due to infection per pt asymptomatic at present), Fractures (coccyx), Gastritis, Gall Bladder Disease, Post Traumatic Stress Disorder, Seizures Denies: Chronic Kidney Disease Surgical History: Cholecystectomy (2017), Endoscopy (2017) - [facility] Procedures INJECT/INFUSE ELECTROLYT (02/24/12) INJECT/INFUSE NEC (04/07/12) NEBULIZER THERAPY (02/20/13) Family History: States: Unknown Family Hx - Social History Hx Tobacco Use: No Hx Alcohol Use: No Hx Substance Use: No - Immunization History Hx Tetanus Toxoid Vaccination: Yes Hx Influenza Vaccination: Yes Hx Pneumococcal Vaccination: Yes Review Of Systems Constitutional: Negative for: Fever, Chills Eyes: Negative for: Vision Change Cardiovascular: Negative for: Chest Pain Respiratory: Negative for: Cough, Shortness of Breath Gastrointestinal: Negative for: Nausea, Vomiting, Abdominal Pain Skin: Negative for: Rash Neurological: Negative for: Weakness, Numbness, Headache, Dizziness Physical Exam - Physical Exam Appears: Non-toxic, No Acute Distress Skin: Warm, Dry Head: Normacephalic Eye(s): bilateral: Normal Inspection, PERRL, EOMI Oral Mucosa: Moist Tongue: No Laceration, No Bleeding Neck: Supple Chest: Symmetrical Cardiovascular: Rhythm Regular Respiratory: No Rales, No Rhonchi, No Wheezing Gastrointestinal/Abdominal: Soft, No Tenderness, No Guarding, No Rebound Extremity: Bilateral: Atraumatic, Normal Color And Temperature, Normal ROM Neurological/Psych: Oriented x3, Normal Speech, Normal Cognition Gait: Steady ED Course And Treatment - Laboratory Results Result Diagrams: 09/28/18 01:14 09/28/18 01:14 O2 Sat by Pulse Oximetry: 99 (ON RA) Pulse Ox Interpretation: Normal Progress Note: Plan: - VBG. - Labs. - IV fluids. - Zofran 4 mg IVP. - UA Reevaluation Time: 02:41 Reassessment Condition: Improved Disposition Counseled Patient/Family Regarding: Studies Performed, Diagnosis, Need For Followup, Rx Given - Disposition Referrals: Finn Dowling JD, MD [Medical Doctor] - Disposition: HOME/ ROUTINE Disposition Time: 00:33 Condition: FAIR Additional Instructions: Please return if symptoms recur Prescriptions: Ondansetron ODT [Zofran ODT] 1 odt PO BID PRN #6 odt PRN Reason: Nausea/Vomiting Instructions: Seizures, Adult (DC) Forms: [facility] (Nepalese) - Clinical Impression Clinical Impression: Seizure - Scribe Statement The provider has reviewed the documentation as recorded by the Scribe Tad Edwards All medical record entries made by the Scribe were at my direction and personally dictated by me. I have reviewed the chart and agree that the record accurately reflects my personal performance of the history, physical exam, medical decision making, and the department course for this patient. I have also personally directed, reviewed, and agree with the discharge instructions and disposition.
[2018-09-28 01:17] LABS: BASO % 0.5 % (0.0-2.0); EOS # 0.1 K/uL (0.0-0.7); EOS % 1.3 % (0.0-4.0); HEMOGLOBIN 14.7 g/dL (11.0-16.0); LYMPH # 2.1 K/uL (1.0-4.3); LYMPH % 24.8 % (20.0-40.0); MEAN CELL VOLUME 89.2 fL (81.0-99.0); MEAN CORPUSCULAR HEMOGLOBIN 31.3 pg (27.0-31.0); MEAN CORPUSCULAR HGB CONC 35.1 g/dL (33.0-37.0); MEAN PLATELET VOLUME 7.5 fL (7.2-11.7); MONO # 0.6 K/uL (0.0-0.8); MONO % 6.6 % (0.0-10.0); NEUT # 5.8 K/uL (1.8-7.0); NEUT % 66.8 % (50.0-75.0); NRBC % 0.1 % (0.0-2.0); RBC 4.68 Mil/uL (3.80-5.20); RED CELL DISTRIBUTION WIDTH 12.6 % (11.5-14.5); WHITE BLOOD COUNT 8.6 K/uL (4.8-10.8)
[2018-09-28 01:27] LABS: VENOUS BLOOD GAS BASE EXCESS -20.9 mmol/L (0.0-2.0); VENOUS BLOOD GAS PCO2 44 mmHg (40-60); VENOUS BLOOD GAS PO2 51 mm/Hg (30-55); VENOUS BLOOD PH 6.98 (7.32-7.43)
[2018-09-28 01:38] LABS: ALB/GLOB RATIO 1.6 (1.0-2.1); ALBUMIN 4.8 g/dL (3.5-5.0); ALT/SGPT 21 U/L (9-52); AST/SGOT 19 U/L (14-36); BLOOD UREA NITROGEN 16 mg/dL (7-17); CALCIUM 8.9 mg/dl (8.6-10.4); GFR NON-AFRICAN AMERICAN > 60
[2018-09-28 01:47] VITALS: RESP 16
[2018-09-28 02:43] VITALS: O2SAT 99
[2018-09-28 02:58] LABS: VENOUS BLOOD GAS BASE EXCESS -4.5 mmol/L (0.0-2.0); VENOUS BLOOD GAS PCO2 40 mmHg (40-60); VENOUS BLOOD GAS PO2 29 mm/Hg (30-55); VENOUS BLOOD PH 7.33 (7.32-7.43)
[2018-09-28 03:13] VITALS: BP 110/68; PULSE 90; TEMP 98
== END 2018-09-28 03:14 | disposition home or self-care (01) ==
LOC: C.ER 00:06
DX: G40.909 Epilepsy, unspecified, not intractable, without status epilepticus (principal)
CPT/HCPCS: 80053; 80320; 82803; 82948; 85025; 96361; 96374; 96375; 99285; J2405; J2765; J7030

== ENCOUNTER 2018-11-01 21:52 | Emergency (ER) | payer OTHER ==
[2018-11-01 21:52] VITALS: BMI 21.6
[2018-11-01 23:40] VITALS: BP 102/69; PULSE 88; RESP 16; TEMP 98.2; O2SAT 99
--- NOTE | 2018-11-01 23:47 | C.PDOC ---
History Of Present Illness 28 year old female with PMHx of seizure is brought to the ED by EMS for evaluation. Patient reports she currently takes Topamax and Keppra and is complaint with her medications. Patient states today she had an aura and felt like she was going to have as seizure, patient describes the aura as a metallic taste in her mouth. Patient called 911 and was brought to the ED. As per EMS there was no witnessed seizure on the way to the ED. Patient at triage denied having a seizure. However at the time of evaluation patient reports "I had a seizure right now", she states it was not witnessed because the nurse had walked away. Patient offers no medical complaints at this time. Time Seen by Provider: 11/01/18 23:16 Chief Complaint (Nursing): Seizure History Per: Patient, EMS History/Exam Limitations: no limitations Recent Seizure Activity Began: Unknown Number Of Seizures: One Length Of Seizures (Duration): Unknown Precipitating Factor(s): None Post-ictal Period: No Severity: None Recent travel outside of the [place]: No Additional History Per: Patient, EMS Past Medical History Reviewed: Historical Data, Nursing Documentation, Vital Signs Vital Signs: Last Vital Signs Temp 98.2 F 11/01/18 23:40 Pulse 88 11/01/18 23:40 Resp 16 11/01/18 23:40 BP 102/69 11/01/18 23:40 Pulse Ox 99 11/01/18 23:40 - Medical History PMH: Anxiety, Arthritis (coccyx), Asthma, Cardia Arrhythmia (5 years ago due to infection per pt asymptomatic at present), Fractures (coccyx), Gastritis, Gall Bladder Disease, Post Traumatic Stress Disorder, Seizures Denies: Chronic Kidney Disease Surgical History: Cholecystectomy (2017), Endoscopy (2017) - [facility] Procedures INJECT/INFUSE ELECTROLYT (02/24/12) INJECT/INFUSE NEC (04/07/12) NEBULIZER THERAPY (02/20/13) Family History: States: Unknown Family Hx - Social History Hx Tobacco Use: No Hx Alcohol Use: No Hx Substance Use: No - Immunization History Hx Tetanus Toxoid Vaccination: Yes Hx Influenza Vaccination: Yes Hx Pneumococcal Vaccination: Yes Review Of Systems Constitutional: Negative for: Fever, Chills Eyes: Negative for: Vision Change Cardiovascular: Negative for: Chest Pain Respiratory: Negative for: Shortness of Breath Gastrointestinal: Negative for: Nausea, Vomiting, Abdominal Pain Skin: Negative for: Rash Neurological: Negative for: Weakness, Numbness, Headache, Dizziness Physical Exam - Physical Exam Appears: Non-toxic, No Acute Distress Skin: Normal Color, Warm, Dry Head: Atraumatic, Normacephalic Eye(s): bilateral: Normal Inspection, PERRL, EOMI Oral Mucosa: Moist Tongue: No Laceration Lips: No Laceration Neck: Normal ROM, Supple Chest: Symmetrical Cardiovascular: Rhythm Regular Respiratory: Normal Breath Sounds, No Rales, No Rhonchi, No Wheezing Gastrointestinal/Abdominal: Soft, No Tenderness, No Guarding, No Rebound Extremity: Normal ROM, No Tenderness, No Swelling Neurological/Psych: Oriented x3, Normal Speech, Normal Cognition, Other (no focal deficits) Gait: Steady ED Course And Treatment O2 Sat by Pulse Oximetry: 99 (ON RA) Pulse Ox Interpretation: Normal Medical Decision Making Medical Decision Making: Impression: alleged seizure activity Patient had no witnessed seizure activity throughout ED course. Vitals normal, patient AAOx3, stable for discharge home. Disposition - Disposition Disposition: HOME/ ROUTINE Disposition Time: 23:16 Condition: GOOD Additional Instructions: SCOTT HERRING, thank you for letting us take care of you today. Your provider was Kaleigh Petersen MD and you were treated for SEIZURE. The emergency medical care you received today was directed at your acute symptoms. If you were prescribed any medication, please fill it and take as directed. It may take several days for your symptoms to resolve. Return to the Emergency Department if your symptoms worsen, do not improve, or if you have any other problems. Please contact your doctor or call one of the physicians/clinics you have been referred to that are listed on the Patient Visit Information form that is included in your discharge packet. Bring any paperwork you were given at discharge with you along with any medications you are taking to your follow up visit. Our treatment cannot replace ongoing medical care by a primary care provider outside of the emergency department. Thank you for allowing the [facility] team to be part of your care today. If you had an X-Ray or CT scan: A Radiologist will review the ED reading if any change in treatment is needed we will contact you. If you had a blood, urine, or wound culture: It will take several days for the results, if any change in treatment is needed we will contact you. If you had an STI test: It will take 48 hours for the results. Please call after 1 week if you have not heard back. Instructions: Seizures, Adult (DC) Forms: [employer] (Mexican) - Clinical Impression Clinical Impression: Seizure disorder - Scribe Statement The provider has reviewed the documentation as recorded by the Scribe Tad Edwards All medical record entries made by the Scribe were at my direction and personally dictated by me. I have reviewed the chart and agree that the record accurately reflects my personal performance of the history, physical exam, medical decision making, and the department course for this patient. I have also personally directed, reviewed, and agree with the discharge instructions and disposition.
== END 2018-11-02 00:35 | disposition home or self-care (01) ==
LOC: C.ER 21:52
DX: G40.909 Epilepsy, unspecified, not intractable, without status epilepticus (principal)

== ENCOUNTER 2018-12-05 01:47 | Emergency (ER) | payer OTHER ==
[2018-12-05 01:48] VITALS: BMI 21.6
[2018-12-05] MEDS ORDERED: Sodium Chloride 0.9% 1,000 ML IV ONE (02:04)
--- NOTE | 2018-12-05 02:06 | C.PDOC ---
History Of Present Illness Patient presents complaining of diarrhea after eating out tonight. Patient states she continued to have numerous episodes of diarrhea after which the color went black and was told by uncle who is a medic to come in for evaluation. De nies fever, chills, nausea, or vomiting. Time Seen by Provider: 12/05/18 01:56 Chief Complaint (Nursing): GI Problem History Per: Patient History/Exam Limitations: no limitations Onset/Duration Of Symptoms: Hrs Current Symptoms Are (Timing): Still Present Severity: Moderate Pain Scale Rating Of: 4 Recent travel outside of the [place]: No Past Medical History Reviewed: Historical Data, Nursing Documentation, Vital Signs Vital Signs: Last Vital Signs Temp Pulse 114 H 12/05/18 01:54 Resp 18 12/05/18 01:54 BP 113/79 12/05/18 01:54 Pulse Ox 98 12/05/18 01:54 - Medical History PMH: Anxiety, Arthritis (coccyx), Asthma, Cardia Arrhythmia (5 years ago due to infection per pt asymptomatic at present), Fractures (coccyx), Gastritis, Gall Bladder Disease, Post Traumatic Stress Disorder, Seizures Denies: Chronic Kidney Disease Surgical History: Cholecystectomy (2017), Endoscopy (2017) - [facility] Procedures INJECT/INFUSE ELECTROLYT (02/24/12) INJECT/INFUSE NEC (04/07/12) NEBULIZER THERAPY (02/20/13) Family History: States: No Known Family Hx - Social History Hx Tobacco Use: No Hx Alcohol Use: No Hx Substance Use: No - Immunization History Hx Tetanus Toxoid Vaccination: Yes Hx Influenza Vaccination: Yes Hx Pneumococcal Vaccination: Yes Review Of Systems Constitutional: Negative for: Fever, Chills Cardiovascular: Negative for: Chest Pain, Palpitations Respiratory: Negative for: Cough, Shortness of Breath Gastrointestinal: Positive for: Abdominal Pain, Diarrhea. Negative for: Nausea, Vomiting Neurological: Negative for: Weakness, Numbness Physical Exam - Physical Exam Appears: Non-toxic Skin: Warm, Dry Head: Normacephalic Oral Mucosa: Moist Neck: Trachea Midline, Supple Chest: Symmetrical, No Tenderness Cardiovascular: Rhythm Regular Respiratory: No Rales, No Rhonchi, No Wheezing Gastrointestinal/Abdominal: Soft, Tenderness (Mild mid epigastric), No Guarding, No Rebound Back: No CVA Tenderness Neurological/Psych: Oriented x3 ED Course And Treatment - Laboratory Results Result Diagrams: 12/05/18 03:02 12/05/18 03:02 O2 Sat by Pulse Oximetry: 98 (room air) Pulse Ox Interpretation: Normal Progress Note: Blood work and urinalysis ordered. IV fluids administered. Reevaluation Time: 05:22 Reassessment Condition: Improved Disposition Counseled Patient/Family Regarding: Studies Performed, Diagnosis, Need For Followup - Disposition Referrals: Finn Dowling JD, MD [Medical Doctor] - Disposition: HOME/ ROUTINE Disposition Time: 02:04 Condition: FAIR Additional Instructions: Please return if symptoms recur. Do use kaopectate for diarrhea Instructions: Acute Abdomen (Belly Pain), Adult (DC) Forms: [employer] (Nigerien) - Clinical Impression Clinical Impression: Diarrhea - Scribe Statement The provider has reviewed the documentation as recorded by the Scribe Raghavendra Gomez All medical record entries made by the Scribe were at my direction and persona lly dictated by me. I have reviewed the chart and agree that the record accurately reflects my personal performance of the history, physical exam, medical decision making, and the department course for this patient. I have also personally directed, reviewed, and agree with the discharge instructions and disposition.
[2018-12-05] MEDS ORDERED: Sodium Chloride 0.9% 1,000 ML ONE (02:17)
[2018-12-05 03:05] LABS: BASO % 0.7 % (0.0-2.0); EOS # 0.1 K/uL (0.0-0.7); EOS % 1.3 % (0.0-4.0); HEMOGLOBIN 14.2 g/dL (11.0-16.0); LYMPH # 2.1 K/uL (1.0-4.3); LYMPH % 34.7 % (20.0-40.0); MEAN CELL VOLUME 91.3 fL (81.0-99.0); MEAN CORPUSCULAR HEMOGLOBIN 31.7 pg (27.0-31.0); MEAN CORPUSCULAR HGB CONC 34.7 g/dL (33.0-37.0); MONO # 0.4 K/uL (0.0-0.8); MONO % 6.9 % (0.0-10.0); NEUT # 3.5 K/uL (1.8-7.0); NEUT % 56.4 % (50.0-75.0); NRBC % 0.1 % (0.0-2.0); RBC 4.46 Mil/uL (3.80-5.20); RED CELL DISTRIBUTION WIDTH 12.3 % (11.5-14.5); WHITE BLOOD COUNT 6.2 K/uL (4.8-10.8)
[2018-12-05 03:16] LABS: INR 1.1; PROTHROMBIN TIME 12.3 SECONDS (9.7-12.2)
[2018-12-05 03:18] LABS: SQUAMOUS EPITHIAL 1 /hpf (0-5); URINE AMORPHOUS SEDIMENT FEW /ul (<OCC); URINE BACTERIA FEW (<OCC); URINE BILIRUBIN NEGATIVE (NEGATIVE); URINE BLOOD 1+ (NEGATIVE); URINE CLARITY Turbid (Clear); URINE COLOR Yellow (YELLOW); URINE GLUCOSE (UA) NORMAL (Normal); URINE LEUKOCYTE ESTERASE 2+ Leu/uL (Negative); URINE PROTEIN 1+ mg/dL (NEGATIVE); WBC CLUMPS MANY /hpf
[2018-12-05 03:19] LABS: ALB/GLOB RATIO 1.5 (1.0-2.1); BLOOD UREA NITROGEN 15 mg/dL (7-17); CALCIUM 9.3 mg/dl (8.6-10.4); GFR NON-AFRICAN AMERICAN > 60; HCG,QUALITATIVE URINE NEGATIVE (NEGATIVE); LIPASE 144 U/L (23-300)
[2018-12-05 03:26] LABS: ALT/SGPT < 6 U/L (9-52); AST/SGOT 25 U/L (14-36)
[2018-12-05 05:22] VITALS: BP 99/63; PULSE 75; RESP 16; TEMP 99.1
[2018-12-05 05:24] VITALS: O2SAT 98
== END 2018-12-05 05:32 | disposition home or self-care (01) ==
LOC: C.ER 01:47
DX: R19.7 Diarrhea, unspecified (principal)
CPT/HCPCS: 80053; 81001; 83690; 84703; 85025; 85610; 85730; 96374; 96375; 99284; C9113; G0328; J1885; J7030

== ENCOUNTER 2018-12-20 05:20 | Emergency (ER) | payer OTHER ==
[2018-12-20 05:20] VITALS: BMI 21.6
[2018-12-20 05:41] VITALS: RESP 20
--- NOTE | 2018-12-20 06:27 | C.PDOC ---
History Of Present Illness 28 y/o female presents to the ED for evaluation of earache and headache. Patient was seen by her PMD today for the same, and was prescribed an unknown medication. She was told her doctor saw fluid behind ears, and patient believes the medication name starts with a Z. This morning she developed worsening nasal congestion. Patient reports no improvement in headache and earache despite taking the medication. Patient also has hx of seizures, and reports compliance with Topamax and Keppra. Time Seen by Provider: 12/20/18 05:34 Chief Complaint (Nursing): ENT Problem History Per: Patient History/Exam Limitations: None Onset/Duration Of Symptoms: Days (2) Current Symptoms Are (Timing): Still Present Symptoms Have Been: Continuous Past Medical History Reviewed: Historical Data, Nursing Documentation, Vital Signs Vital Signs: Last Vital Signs Temp 99.9 F H 12/20/18 05:30 Pulse 120 H 12/20/18 05:30 Resp 20 12/20/18 05:30 BP 104/72 12/20/18 05:30 Pulse Ox 99 12/20/18 05:30 - Medical History PMH: Anxiety, Arthritis (coccyx), Asthma, Cardia Arrhythmia (5 years ago due to infection per pt asymptomatic at present), Fractures (coccyx), Gastritis, Gall Bladder Disease, Post Traumatic Stress Disorder, Seizures Denies: Chronic Kidney Disease Surgical History: Cholecystectomy (2017), Endoscopy (2017) - [facility] Procedures INJECT/INFUSE ELECTROLYT (02/24/12) INJECT/INFUSE NEC (04/07/12) NEBULIZER THERAPY (02/20/13) Family History: States: Unknown Family Hx - Social History Hx Tobacco Use: No Hx Alcohol Use: No Hx Substance Use: No - Immunization History Hx Tetanus Toxoid Vaccination: Yes Hx Influenza Vaccination: Yes Hx Pneumococcal Vaccination: Yes Review Of Systems Constitutional: Positive for: Fever ENT: Positive for: Ear Pain, Nose Discharge, Nose Congestion Cardiovascular: Negative for: Chest Pain Respiratory: Negative for: Shortness of Breath Gastrointestinal: Negative for: Vomiting, Diarrhea Neurological: Positive for: Headache. Negative for: Weakness, Numbness, Dizziness Physical Exam - Physical Exam Appears: Well, Non-toxic, No Acute Distress Skin: Normal Color, Warm, No Rash Head: Atraumatic, Normacephalic, Tenderness (Mild pain on percussion of frontal sinuses) Eye(s): bilateral: Normal Inspection (no scleral icterus), PERRL, EOMI Ear(s): Bilateral: Other (Clear fluid behind TMs, no drainage, no edema or erythema to canals) Nose: No Discharge, Other (Enlarged turbinates bilaterally) Throat: Normal, No Erythema, No Exudate Neck: Normal ROM, Supple, Other (No nuchal rigidity) Chest: Symmetrical Cardiovascular: Rhythm Regular, No Murmur Respiratory: Normal Breath Sounds, No Rales, No Rhonchi, No Wheezing Extremity: Bilateral: Atraumatic, Normal ROM Pulses: Left Radial: Normal, Right Radial: Normal Neurological/Psych: Oriented x3, Normal Cranial Nerves, Normal Motor, Normal Sensation Gait: Steady ED Course And Treatment O2 Sat by Pulse Oximetry: 99 (RA) Pulse Ox Interpretation: Normal Medical Decision Making Medical Decision Making: Plan: - 60 mg PO Sudafed - 15 mg IM Toradol patient report good improvement in pain symptoms. she does not have any meningeal signs or neurological deficits at this time. 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 - Scribe Statement The provider has reviewed the documentation as recorded by the Scribyessi Urbano All medical record entries made by the Scribe were at my direction and personally dictated by me. I have reviewed the chart and agree that the record accurately reflects my personal performance of the history, physical exam, medical decision making, and the department course for this patient. I have also personally directed, reviewed, and agree with the discharge instructions and disposition.
[2018-12-20 07:19] VITALS: BP 117/75; PULSE 91; TEMP 99; O2SAT 100
== END 2018-12-20 07:22 | disposition home or self-care (01) ==
LOC: C.ER 05:20
DX: R51 Headache (principal)
CPT/HCPCS: 96372; 99284; J1885

== ENCOUNTER 2019-01-03 10:28 | Emergency (ER) | payer OTHER | END 2019-01-03 12:57 | disposition home or self-care (01) | LOC: C.ER 10:28 ==

== ENCOUNTER 2019-03-04 02:51 | Emergency (ER) | payer OTHER ==
[2019-03-04 02:51] VITALS: BMI 21.6
[2019-03-04 03:37] LABS: HCG,QUALITATIVE URINE NEGATIVE (NEGATIVE)
[2019-03-04] MEDS ORDERED: Sodium Chloride 0.9% 500 ML IV ONE (03:37)
[2019-03-04 03:47] LABS: SQUAMOUS EPITHIAL 1 /hpf (0-5); URINE AMORPHOUS SEDIMENT OCC /ul (<OCC); URINE BILIRUBIN NEGATIVE (NEGATIVE); URINE CLARITY Hazy (Clear); URINE COLOR Yellow (YELLOW); URINE GLUCOSE (UA) NORMAL (Normal); URINE LEUKOCYTE ESTERASE NEG Leu/uL (Negative); URINE PROTEIN NEGATIVE (NEGATIVE); URINE UROBILINOGEN NORMAL mg/dL (0.2-1.0)
[2019-03-04 03:49] LABS: URINE BLOOD TRACE (NEGATIVE)
[2019-03-04 04:14] LABS: BASO # 0.1 K/uL (0.0-0.2); BASO % 1.4 % (0.0-2.0); EOS # 0.1 K/uL (0.0-0.7); EOS % 0.9 % (0.0-4.0); HEMOGLOBIN 13.9 g/dL (11.0-16.0); LYMPH % 14.1 % (20.0-40.0); MEAN CELL VOLUME 90.7 fL (81.0-99.0); MEAN CORPUSCULAR HEMOGLOBIN 31.3 pg (27.0-31.0); MEAN CORPUSCULAR HGB CONC 34.5 g/dL (33.0-37.0); MEAN PLATELET VOLUME 7.6 fL (7.2-11.7); MONO # 0.4 K/uL (0.0-0.8); MONO % 6.4 % (0.0-10.0); NEUT # 5.3 K/uL (1.8-7.0); NEUT % 77.2 % (50.0-75.0); RBC 4.46 Mil/uL (3.80-5.20); RED CELL DISTRIBUTION WIDTH 12.6 % (11.5-14.5); WHITE BLOOD COUNT 6.8 K/uL (4.8-10.8)
[2019-03-04 04:24] LABS: ALB/GLOB RATIO 1.6 (1.0-2.1); ALBUMIN 4.6 g/dL (3.5-5.0); ALT/SGPT 11 U/L (9-52); AST/SGOT 18 U/L (14-36); BLOOD UREA NITROGEN 12 mg/dL (7-17); CALCIUM 9.3 mg/dl (8.6-10.4); GFR NON-AFRICAN AMERICAN > 60; LIPASE 91 U/L (23-300)
--- NOTE | 2019-03-04 05:04 | C.PDOC ---
History Of Present Illness 28 year old female presents to the ED c/o right sided abdominal pain that started at 20:00. Patient denies fever, chills, nausea, vomit, diarrhea, rash, dysuria, hematuria, UTI complaints. Time Seen by Provider: 03/04/19 03:27 Chief Complaint (Nursing): Abdominal Pain History Per: Patient History/Exam Limitations: no limitations Onset/Duration Of Symptoms: Hrs (20:00) Current Symptoms Are (Timing): Still Present Location Of Pain/Discomfort: RUQ, RLQ Quality Of Discomfort: "Pain" Associated Symptoms: denies: Fever, Nausea, Vomiting, Diarrhea, Urinary Symptoms Recent travel outside of the [place]: No Additional History Per: Patient Abnormal Vaginal Bleeding: No Past Medical History Reviewed: Historical Data, Nursing Documentation, Vital Signs Vital Signs: Last Vital Signs Temp 97.8 F 03/04/19 03:08 Pulse 118 H 03/04/19 03:08 Resp 20 03/04/19 03:08 BP 105/67 03/04/19 03:08 Pulse Ox 99 03/04/19 03:08 Primary Care Provider: Finn Dowling - Medical History PMH: Anxiety, Arthritis, Asthma, Cardia Arrhythmia (5 years ago due to infection per pt asymptomatic at present), Fractures, Gastritis, Gall Bladder Disease, Post Traumatic Stress Disorder, Seizures Denies: Chronic Kidney Disease Surgical History: Cholecystectomy (2017), Endoscopy (2017) - [facility] Procedures INJECT/INFUSE ELECTROLYT (02/24/12) INJECT/INFUSE NEC (04/07/12) NEBULIZER THERAPY (02/20/13) Family History: States: Unknown Family Hx - Social History Hx Tobacco Use: No Hx Alcohol Use: No Hx Substance Use: No - Immunization History Hx Tetanus Toxoid Vaccination: Yes Hx Influenza Vaccination: Yes (07/2018) Hx Pneumococcal Vaccination: No Review Of Systems Constitutional: Negative for: Fever, Chills Cardiovascular: Negative for: Chest Pain Respiratory: Negative for: Shortness of Breath Gastrointestinal: Positive for: Abdominal Pain. Negative for: Nausea, Vomiting, Diarrhea Genitourinary: Negative for: Dysuria, Hematuria Musculoskeletal: Negative for: Back Pain Skin: Negative for: Rash Neurological: Negative for: Weakness, Numbness Physical Exam - Physical Exam Appears: Non-toxic, No Acute Distress Skin: Normal Color, Warm, Dry Head: Atraumatic, Normacephalic Eye(s): bilateral: Normal Inspection Oral Mucosa: Moist Neck: Normal ROM, Supple Chest: Symmetrical Cardiovascular: Rhythm Regular Respiratory: Normal Breath Sounds, No Rales, No Rhonchi, No Wheezing Gastrointestinal/Abdominal: Soft, Tenderness (RLQ, and periumbilical), No Guarding, No Rebound, Other (NO McBurneys.) Back: No CVA Tenderness Pelvic: Other (Deffered) Extremity: Normal ROM, No Tenderness, No Other Neurological/Psych: Oriented x3, Normal Speech, Normal Cognition Gait: Steady ED Course And Treatment - Laboratory Results Result Diagrams: 03/04/19 04:08 03/04/19 04:08 Lab Results: Total Bilirubin 0.5 mg/dL (0.2-1.3) 03/04/19 04:08 AST 18 U/L (14-36) 03/04/19 04:08 ALT 11 U/L (9-52) 03/04/19 04:08 Alkaline Phosphatase 34 U/L (38-126) L 03/04/19 04:08 Total Protein 7.4 g/dL (6.3-8.3) 03/04/19 04:08 Albumin 4.6 g/dL (3.5-5.0) 03/04/19 04:08 Globulin 2.8 gm/dL (2.2-3.9) 03/04/19 04:08 Albumin/Globulin Ratio 1.6 (1.0-2.1) 03/04/19 04:08 Lipase 91 U/L (23-300) 03/04/19 04:08 Urine Color Yellow (YELLOW) 03/04/19 03:18 Urine Clarity Hazy (Clear) 03/04/19 03:18 Urine pH 7.0 (5.0-8.0) 03/04/19 03:18 Ur Specific [place] 1.009 (1.003-1.030) 03/04/19 03:18 Urine Protein Negative mg/dL (NEGATIVE) 03/04/19 03:18 Urine Glucose (UA) Normal mg/dL (Normal) 03/04/19 03:18 Urine Ketones Negative mg/dL (NEGATIVE) 03/04/19 03:18 Urine Blood Trace (NEGATIVE) H 03/04/19 03:18 Urine Nitrate Negative (NEGATIVE) 03/04/19 03:18 Urine Bilirubin Negative (NEGATIVE) 03/04/19 03:18 Urine Urobilinogen Normal mg/dL (0.2-1.0) 03/04/19 03:18 Ur Leukocyte Esterase Neg Catina/uL (Negative) 03/04/19 03:18 Urine WBC (Auto) 2 /hpf (0-5) 03/04/19 03:18 Urine RBC (Auto) 4 /hpf (0-3) H 03/04/19 03:18 Ur Squamous Epith Cells 1 /hpf (0-5) 03/04/19 03:18 Amorphous Sediment Occ /ul (<OCC) H 03/04/19 03:18 Urine HCG, Qual Negative (NEGATIVE) 03/04/19 03:18 Urine HCG, Qual Negative (NEGATIVE) 03/04/19 03:18 O2 Sat by Pulse Oximetry: 99 (ON RA) Pulse Ox Interpretation: Normal - CT Scan/US CT abd/pelvis Other Rad Studies (CT/US): Read By Radiologist, Radiology Report Reviewed CT/US Interpretation: CT SCAN OF THE ABDOMEN AND PELVIS WITHOUT ORAL OR IV CONTRAST. CLINICAL INDICATION: Abdominal pain, periumbilical. TECHNIQUE: Axial and reformatted sagittal and coronal images of the abdomen pelvis obtained without IV contrast administration. COMPARISON: 12/14/2016. FINDINGS: The visualized lung bases are unremarkable. Normal unenhanced liver. Absent gallbladder and non dilated extrahepatic biliary system. Normal unenhanced spleen. Normal pancreas. . Normal bilateral adrenal glands. Normal size of the right kidney. There is no right renal mass. There are no right renal calculi. There is no right hydronephrosis. Mild fullness of the visualized right ureter. Normal size of the left kidney. There is no left renal mass. There are no left renal calculi. There is no left hydronephrosis. Mild fullness of the visualized left ureter. Normal visualized stomach. Normal small intestine. Uncomplicated diverticulosis with mild amount of fecal residue in the colon. The appendix is visualized and appears normal. There is no demonstrated peritoneal fluid. Normal abdominal aorta. Normal inferior vena cava. Normal retroperitoneum. . Distended urinary bladder. There is no pelvic mass lesion or lymphadenopathy. There is no pelvic fluid. . Normal abdominal wall. Normal osseous structures. IMPRESSION: Distended bladder. Mild fullness of the collecting systems on both sides. . Electronically signed on March 04, 2019 6:16:17 AM EDT by: Shellie Juarez M.D., Certified by ABR, MSK, Neuroradiology. Progress Note: Plan: - CT abd/pelvis. - Labs. - Pepcid 20 mg IVP. - IV fluids. - Zofran 4 mg IVP. - UA. Pt sleeping comfortably in ED, labs and abd/pelvis CT d/w pt. Pt feels better, abd soft NT and f/u and return precautions d/w pt. 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 - Scribe Statement The provider has reviewed the documentation as recorded by the Scribe Tad Edwards All medical record entries made by the Scribe were at my direction and personally dictated by me. I have reviewed the chart and agree that the record accurately reflects my personal performance of the history, physical exam, medical decision making, and the department course for this patient. I have also personally directed, reviewed, and agree with the discharge instructions and disposition.
[2019-03-04 06:51] VITALS: BP 99/61; PULSE 83; RESP 18; TEMP 98.3
--- NOTE | 2019-03-04 09:44 | CT ---
Date of service: 03/04/2019 PROCEDURE: CT Abdomen and Pelvis without intravenous contrast HISTORY: abd pain , periumbilical COMPARISON: 12/14/2016 TECHNIQUE: Without contrast.. Contrast dose: 0 Radiation dose: Total exam DLP = 234.93 mGy-cm. This CT exam was performed using one or more of the following dose reduction techniques: Automated exposure control, adjustment of the mA and/or kV according to patient size, and/or use of iterative reconstruction technique. FINDINGS: LOWER THORAX: Unremarkable. LIVER: Unremarkable. No gross lesion or ductal dilatation. GALLBLADDER AND BILE DUCTS: Gallbladder not well visualized. Question is raised as to possible prior cholecystectomy. PANCREAS: Unremarkable. No gross lesion or ductal dilatation. SPLEEN: Unremarkable. ADRENALS: Unremarkable. No mass. KIDNEYS AND URETERS: Unremarkable. No hydronephrosis. No solid mass. VASCULATURE: Unremarkable. No aortic aneurysm. No aortic atherosclerotic calcification or mural plaque present. BOWEL: No bowel obstruction. No abnormal bowel loops are identified. APPENDIX: Not identified. No secondary findings. PERITONEUM: Unremarkable. No free fluid. No free air. LYMPH NODES: Unremarkable. No enlarged lymph nodes. BLADDER: Unremarkable. REPRODUCTIVE: Normal uterus BONES: No acute fracture. Incidental hemangioma T11 vertebral body. OTHER FINDINGS: None. IMPRESSION: No acute abnormality. The preliminary findings for this examination were reported by [facility] at 6:16 a.m. on 03/04/2019. There is concurrence of this report with the preliminary findings.
[2019-03-07 03:31] VITALS: O2SAT 99
== END 2019-03-04 06:52 | disposition home or self-care (01) ==
LOC: C.ER 02:51
DX: R10.31 Right lower quadrant pain (principal)
CPT/HCPCS: 74176; 80053; 81001; 83690; 84703; 85025; 96361; 96374; 96375; 99284; J2405; J7040